=== PATIENT | male | born 1940 | race Caucasian/White ===

== ENCOUNTER → 2016-04-16 | Outpatient (CLI) | payer OTHER ==
[~2016-04-16] MED LIST: ACT/15 PO; AMLO-110 PO; ATOR-22 PO; CHOL100010 PO; CHOL1CAP PO; CYCL10TA6 PO; FURO40TA3 PO; LEVO50TA6 PO; LOSA50TA54 PO; METO1TAB69 PO; METO25TA3 PO; METO50TA7 PO; OMEP40CA PO; PLN/10 PO; RANI300T PO; SIMV20TA2 PO; TEST1INJ2 INJ
[2016-04-16 09:40] LABS: HEMATOCRIT 42.4 % (42-52); MEAN CELL VOLUME 90.8 fL (80-100); MEAN CORPUSCULAR HEMOGLOBIN 31.3 pg (25-34); MEAN CORPUSCULAR HGB CONC 34.4 g/dl (32-36); MEAN PLATELET VOLUME 9.8 fL (7.4-10.4); PLATELET COUNT 247 K/uL (130-400); RED BLOOD COUNT 4.67 M/uL (4.7-6.1); WHITE BLOOD COUNT 8.92 K/uL (4.8-10.8)
[2016-04-16 09:53] LABS: BLOOD UREA NITROGEN 38 mg/dl (7-18); GLUCOSE 159 mg/dl (70-99)
[2016-04-16 09:54] LABS: BUN/CREATININE RATIO 13.9 (10-20); CALCIUM 9.5 mg/dl (8.5-10.1); CARBON DIOXIDE 30 mmol/L (21-32); CHLORIDE 103 mmol/L (98-107); PHOSPHORUS 2.7 mg/dl (2.5-4.9); POTASSIUM 3.7 mmol/L (3.5-5.1); SODIUM 142 mmol/L (136-145)
[2016-04-16 10:04] LABS: URINE APPEARANCE CLEAR (CLEAR); URINE BILIRUBIN NEG (NEG); URINE COLOR YELLOW; URINE EPITHELIAL CELL AUTO 0-5 /lpf (0-5); URINE NITRITE NEG (NEG); URINE SPECIFIC GRAVITY 1.009 (1.000-1.030); UROBILINOGEN NEG (NEG)
[2016-04-16 10:05] LABS: MANUAL MICROSCOPIC REQUIRED? NO; REVIEW REQ? NO
[2016-04-16 10:38] LABS: URINE PROTIEN/CREAT RATIO 2.9 (0-0.2); URINE TOTAL PROTEIN 181.4 mg/dl (0-11.9)
== END | disposition home or self-care (01) ==
LOC: C.LAB 07:37
PROVIDERS: ATTEND Internal Medicine Nephrology
DX: I12.9 Hypertensive chronic kidney disease with stage 1 through stage 4 chronic kidney disease, or unspecified chronic kidney disease (principal); R80.9 Proteinuria, unspecified; N25.81 Secondary hyperparathyroidism of renal origin; E55.9 Vitamin D deficiency, unspecified; N18.4 Chronic kidney disease, stage 4 (severe)

== ENCOUNTER 2016-04-25 09:34 | Emergency (ER) | payer OTHER ==
[~2016-04-25] VITALS: Ht 170.2 cm; Wt 95.0 kg
[~2016-04-25 09:34] MED LIST changes: -AMLO-110 PO; -ATOR-22 PO; -LEVO50TA6 PO; -LOSA50TA54 PO; -METO50TA7 PO
[2016-04-25 09:40] VITALS: TEMP 37; Ht 170.2 cm; Wt 95.0 kg
--- NOTE | 2016-04-25 09:55 | EMERGENCY ROOM VISIT NOTE ---
History Report prepared by Tom: Sherita Sullivan Under the Supervision of: Dr. Catracho Rader M.D. First contact with patient: 09:41 Chief Complaint: HYPERTENSION Stated Complaint: HIGH BP History of Present Illness The patient is a 75 year old male who presents to the Emergency Room with complaints of persistent hypertension that began one week ago. The patient states that this morning when he woke up his blood pressure was over 200 systolically. He additionally associates a headache and ear ringing with his symptoms today, which he states is typical when his pressure is elevated. The patient rates his headache as a 2/10 in severity. He states that he takes metoprolol at night for his hypertension and amlodipine in the morning. The patient states that he took all his morning medications today. The patient notes a history of diabetes and hypertension. Source of History: patient Onset: one week ago Position: other (global) Symptom Intensity: 200 systolically Quality: other (hypertension) Timing: other (persistent) Associated Symptoms: + headache Note: Associated Symptoms: ringing in ears Review of Systems All systems have been listed, reviewed, and are negative other than those previously mentioned. Please see Additional Medical History Sheet. Past Medical & Surgical Medical Problems: (1) Diabetes (2) Hyperlipidemia (3) Hypertension (4) Kidney disease Family History Cancer Diabetes mellitus FH: heart disease Social History Smoking Status: Former Smoker Marital Status: Occupation Status: retired Current/Historical Medications Scheduled Amlodipine (Norvasc), 5 MG PO QAM Atorvastatin (Lipitor), 20 MG PO HS Choline Fenofibrate (Fenofibric Acid Dr), 45 MG PO DAILY Furosemide (Lasix), 40 MG PO QPM Levothyroxine Sodium (Levothyroxine Sodium), 50 MCG PO DAILY Losartan Potassium (Cozaar), 50 MG PO QAM Metoprolol Succ (Toprol Xl) (Toprol-Xl), 150 MG PO QPM Pioglitazone Hcl (Actos), 15 MG PO QPM Ranitidine Hcl (Zantac), 300 MG PO BID Testosterone Cypionate (Testosterone Cypionate), 0.5 ML INJ Q15D Allergies Coded Allergies: Penicillins (Unverified Allergy, Severe, HIVES, 06/29/15) Cimetidine (Verified Allergy, Unknown, ., 06/29/15) Physical Exam Vital Signs Date Time Temp Pulse Resp B/P Pulse Ox O2 Delivery O2 Flow Rate FiO2 04/25/16 12:00 55 18 169/83 95 04/25/16 11:00 56 142/87 04/25/16 10:37 151/81 04/25/16 10:01 64 158/88 04/25/16 09:58 64 165/85 04/25/16 09:54 62 18 172/89 97 04/25/16 09:50 67 04/25/16 09:40 37.0 70 18 208/98 96 Room Air Physical Exam GENERAL: Patient awake, alert, oriented x 3. Patient follows commands. Patient does not appear toxic. Patient is adequately hydrated and well- nourished. SKIN: No erythema, pallor, cyanosis or rash HEENT: Normal head, pupils equal, reactive to light and accommodation. Oral cavity and posterior pharynx appear normal, dentures upper and lower. Neck: Without adenopathy, no neck vein distention. LUNGS: Clear to auscultation. No wheezes, no rales, no rhonchi. HEART: No murmurs. No gallops. No rubs ABDOMEN: Soft nontender. EXTREMITIES: No significant edema. NEUROLOGIC: Cranial nerves II-XII within normal limits. No gross motor sensory function deficits. Medical Decision & Procedures Laboratory Results 04/25/16 10:00 Red Blood Count 4.57, Mean Corpuscular Volume 92.6, Mean Corpuscular Hemoglobin 32.2, Mean Corpuscular Hemoglobin Concent 34.8, Mean Platelet Volume 9.3, Neutrophils (%) (Auto) 61.7, Lymphocytes (%) (Auto) 23.2, Monocytes (%) (Auto) 11.2, Eosinophils (%) (Auto) 2.5, Basophils (%) (Auto) 0.4, Neutrophils # (Auto ) 4.12, Lymphocytes # (Auto) 1.55, Monocytes # (Auto) 0.75, Eosinophils # (Auto ) 0.17, Basophils # (Auto) 0.03 04/25/16 10:00 Test 04/25/16 10:00 White Blood Count 6.69 K/uL (4.8-10.8) Red Blood Count 4.57 M/uL (4.7-6.1) Hemoglobin 14.7 g/dL (14.0-18.0) Hematocrit 42.3 % (42-52) Mean Corpuscular Volume 92.6 fL (80-100) Mean Corpuscular Hemoglobin 32.2 pg (25-34) Mean Corpuscular Hemoglobin Concent 34.8 g/dl (32-36) Platelet Count 231 K/uL (130-400) Mean Platelet Volume 9.3 fL (7.4-10.4) Neutrophils (%) (Auto) 61.7 % Lymphocytes (%) (Auto) 23.2 % Monocytes (%) (Auto) 11.2 % Eosinophils (%) (Auto) 2.5 % Basophils (%) (Auto) 0.4 % Neutrophils # (Auto) 4.12 K/uL (1.4-6.5) Lymphocytes # (Auto) 1.55 K/uL (1.2-3.4) Monocytes # (Auto) 0.75 K/uL (0.11-0.59) Eosinophils # (Auto) 0.17 K/uL (0-0.5) Basophils # (Auto) 0.03 K/uL (0-0.2) RDW Standard Deviation 50.5 fL (36.4-46.3) RDW Coefficient of Variation 15.0 % (11.5-14.5) Immature Granulocyte % (Auto) 1.0 % Immature Granulocyte # (Auto) 0.07 K/uL (0.00-0.02) Anion Gap 10.0 mmol/L (3-11) Est Creatinine Clear Calc Drug Dose 28.5 ml/min Estimated GFR () 28.3 Estimated GFR (Non- 24.4 BUN/Creatinine Ratio 14.5 (10-20) Calcium Level 8.8 mg/dl (8.5-10.1) Troponin I < 0.015 ng/ml (0-0.045) Laboratory results as stated above per my review. ECG Indication: other (hypertension) Rate (beats per minute): 62 Rhythm: normal sinus Findings: no acute ischemic change, no ectopy ED Course 0942: Past medical records reviewed. The patient was evaluated in room A2. A complete history and physical examination was performed. 1051: Per the charge nurse, the patient's potassium hemolyzed. On 04/16/16 the patient had a potassium of 3.7, the lab will not be redrawn. 1118: I reevaluated the patient and he is resting comfortably. His blood pressure came down without medication and the ringing in his ear has subsided. I discussed the exam findings with him and I discussed the treatment plan. He verbalized complete understanding and agreement. He is ready to go home. Medical Decision Nurses notes reviewed. Medical history sheet reviewed. Differential diagnosis includes but is not limited to: hypertension, medication compliance, metabolic disorder, renal impairment. The patient is here with elevated blood pressure and ringing in his ears. I had ordered medication for him to receive but his blood pressure began coming down without that. Multiple blood pressure recordings were obtained. The patient felt better and did not have to receive any further antihypertensives. I reassured the patient. Multiple labs were evaluated. Please see above. I feel the patient is safe to return home and will continue taking his current medications as prescribed. He is to follow-up with his family physician and crtts. Impression Primary Impression: Hypertension Scribe Attestation The scribe's documentation has been prepared under my direction and personally reviewed by me in its entirety. I confirm that the note above accurately reflects all work, treatment, procedures, and medical decision making performed by me. Departure Information Dispostion Home / Self-Care Referrals Amilcar Rivas Jr,D.O. (PCP) Forms HOME CARE DOCUMENTATION FORM, IMPORTANT VISIT INFORMATION, WORK / SCHOOL INSTRUCTIONS Patient Instructions My [facility] Additional Instructions Continue taking all of your current medications as prescribed. Follow-up with your family physician and crtts. Problem Qualifiers Primary Impression: Hypertension Hypertension type: renovascular hypertension Qualified Codes: I15.0 - Renovascular hypertension
[2016-04-25] MEDS ORDERED: AMLODIPINE BESYLATE 5 MG TAB PO ONE (10:00)
[2016-04-25 10:07] LABS: BASO % 0.4 %; BASO ABS # 0.03 K/uL (0-0.2); COMPLETE YES; EOS % 2.5 %; HEMATOCRIT 42.3 % (42-52); LYMPH % 23.2 %; LYMPH ABS # 1.55 K/uL (1.2-3.4); MEAN CELL VOLUME 92.6 fL (80-100); MEAN CORPUSCULAR HEMOGLOBIN 32.2 pg (25-34); MEAN CORPUSCULAR HGB CONC 34.8 g/dl (32-36); MEAN PLATELET VOLUME 9.3 fL (7.4-10.4); MONO % 11.2 %; NEUT % 61.7 %; PLATELET COUNT 231 K/uL (130-400); RED BLOOD COUNT 4.57 M/uL (4.7-6.1); WHITE BLOOD COUNT 6.69 K/uL (4.8-10.8)
[2016-04-25] MEDS ORDERED: ATOR-22 PO (10:07)
[2016-04-25] MEDS ORDERED: LOSA50TA54 PO (10:07)
[2016-04-25] MEDS ORDERED: LEVO50TA6 PO (10:07)
[2016-04-25] MEDS ORDERED: METO50TA7 PO (10:07)
[2016-04-25] MEDS ORDERED: AMLO-110 PO (10:07)
[2016-04-25 10:38] LABS: BLOOD UREA NITROGEN 36 mg/dl (7-18); BUN/CREATININE RATIO 14.5 (10-20); CALCIUM 8.8 mg/dl (8.5-10.1); CARBON DIOXIDE 26 mmol/L (21-32); CHLORIDE 104 mmol/L (98-107); GLUCOSE 202 mg/dl (70-99); SODIUM 140 mmol/L (136-145)
[2016-04-25 12:00] VITALS: BP 169/83; PULSE 55; O2SAT 95
== END 2016-04-25 12:30 | disposition home or self-care (01) ==
LOC: C.EDB 09:37 → C.EDA 12:30
DX: I15.0 Renovascular hypertension (principal); E11.9 Type 2 diabetes mellitus without complications; E78.5 Hyperlipidemia, unspecified; N28.9 Disorder of kidney and ureter, unspecified; Z80.9 Family history of malignant neoplasm, unspecified; Z83.3 Family history of diabetes mellitus; Z82.49 Family history of ischemic heart disease and other diseases of the circulatory system; Z87.891 Personal history of nicotine dependence; Z79.899 Other long term (current) drug therapy

== ENCOUNTER → 2016-05-08 | Outpatient (CLI) | payer OTHER ==
[~2016-05-08] MED LIST changes: +AMLO-110 PO; +ATOR-22 PO; -CHOL100010 PO; -CYCL10TA6 PO; +LEVO50TA6 PO; +LOSA50TA54 PO; -METO1TAB69 PO; -METO25TA3 PO; +METO50TA7 PO; -OMEP40CA PO; -PLN/10 PO; -SIMV20TA2 PO
[2016-05-08 09:55] LABS: BLOOD UREA NITROGEN 45 mg/dl (7-18); CALCIUM 9.1 mg/dl (8.5-10.1); CARBON DIOXIDE 31 mmol/L (21-32); CHLORIDE 101 mmol/L (98-107); GLUCOSE 265 mg/dl (70-99); POTASSIUM 3.9 mmol/L (3.5-5.1); SODIUM 139 mmol/L (136-145)
[2016-05-08 09:56] LABS: PHOSPHORUS 3.1 mg/dl (2.5-4.9)
== END | disposition home or self-care (01) ==
LOC: C.LAB 07:39
PROVIDERS: ATTEND Internal Medicine Nephrology
DX: I10 Essential (primary) hypertension (principal); N28.1 Cyst of kidney, acquired; R80.9 Proteinuria, unspecified; N25.81 Secondary hyperparathyroidism of renal origin; E55.9 Vitamin D deficiency, unspecified; N18.4 Chronic kidney disease, stage 4 (severe)

== ENCOUNTER → 2016-08-25 | Outpatient (CLI) | payer OTHER ==
[2016-08-25 10:48] LABS: HEMATOCRIT 37.1 % (42-52); MEAN CELL VOLUME 91.8 fL (80-100); MEAN CORPUSCULAR HEMOGLOBIN 31.2 pg (25-34); MEAN PLATELET VOLUME 8.7 fL (7.4-10.4); PLATELET COUNT 242 K/uL (130-400); RED BLOOD COUNT 4.04 M/uL (4.7-6.1); WHITE BLOOD COUNT 6.81 K/uL (4.8-10.8)
[2016-08-25 11:19] LABS: BLOOD UREA NITROGEN 44 mg/dl (7-18); BUN/CREATININE RATIO 11.9 (10-20); CALCIUM 9.2 mg/dl (8.5-10.1); CARBON DIOXIDE 28 mmol/L (21-32); CHLORIDE 104 mmol/L (98-107); GLUCOSE 192 mg/dl (70-99); PHOSPHORUS 3.6 mg/dl (2.5-4.9); POTASSIUM 4.3 mmol/L (3.5-5.1); SODIUM 140 mmol/L (136-145)
[2016-08-25 12:10] LABS: MANUAL MICROSCOPIC REQUIRED? NO; REVIEW REQ? NO; URINE APPEARANCE CLEAR (CLEAR); URINE BILIRUBIN NEG (NEG); URINE COLOR YELLOW; URINE EPITHELIAL CELL AUTO 0-5 /lpf (0-5); URINE NITRITE NEG (NEG); URINE SPECIFIC GRAVITY 1.014 (1.000-1.030); UROBILINOGEN NEG (NEG)
[2016-08-25 12:14] LABS: URINE PROTIEN/CREAT RATIO 0.9 (0-0.2); URINE TOTAL PROTEIN 98.9 mg/dl (0-11.9)
== END | disposition home or self-care (01) ==
LOC: C.LAB 10:15
PROVIDERS: ATTEND Internal Medicine Nephrology
DX: I12.9 Hypertensive chronic kidney disease with stage 1 through stage 4 chronic kidney disease, or unspecified chronic kidney disease (principal); R80.9 Proteinuria, unspecified; N25.81 Secondary hyperparathyroidism of renal origin; E55.9 Vitamin D deficiency, unspecified; N18.4 Chronic kidney disease, stage 4 (severe)

== ENCOUNTER → 2016-09-05 | Outpatient (CLI) | payer OTHER ==
--- NOTE | 2016-09-05 12:11 | DIAGNOSTIC IMAGING REPORT ---
(RENAL)RETROPERITON COMP HISTORY: 76 years-old Male I10 [id number] [id number] Secondary hyperparathyro COMPARISON: Renal ultrasound 04/11/2014 and 06/07/2012, 05/24/2007 TECHNIQUE: Multiple real-time sonographic images of the kidneys and urinary bladder were obtained assessing grayscale appearance and color flow. FINDINGS: The right kidney measures 10.4 cm in length. Diffuse cortical thinning is again seen with increased echogenicity of the renal parenchyma. No hydronephrosis. Mildly echogenic lesion within the inferior pole left kidney with increased through transmission is again seen, 2.2 x 2.1 x 2.2 cm, previously 2.8 x 2.3 x 2.2 cm. A simple appearing cyst was seen within this distribution on study dated 05/24/2007 suggesting hemorrhagic cyst. Cyst of the midpole right kidney is seen measuring up to 1.9 cm without internal flow or suspicious features. Left kidney measures 11.7 cm in length. Exophytic cyst of the inferior pole left kidney is noted measuring up to 4.3 x 4.6 x 4.0 cm, the measured at 3.2 cm. No suspicious features or internal vascularity. Superior pole left kidney cyst measures 2.9 x 2.7 x 2.2 cm and appears simple. Diffuse renal cortical thinning with increased echogenicity of the renal parenchyma noted. Collapsed urinary bladder is unremarkable. IMPRESSION: 1. Evidence of chronic medical renal disease without hydronephrosis. 2. Demonstration of multiple bilateral renal cysts without significant change from comparison exam. 3. Complex lesion of the lower pole right kidney measuring up to 2.2 cm appears unchanged to slightly smaller from 04/11/2014 suggesting complex cyst. A simple cyst was noted within this distribution on study dated 05/24/2007. The above report was generated using voice recognition software. It may contain grammatical, syntax or spelling errors. Electronically signed by: Joaquin Blum M.D. 09/05/2016 12:09 PM Dictated Date/Time: 09/05/2016 12:02 PM
== END | disposition home or self-care (01) ==
LOC: C.ULTR 11:19
PROVIDERS: ATTEND Internal Medicine Nephrology
DX: E55.9 Vitamin D deficiency, unspecified (principal); I10 Essential (primary) hypertension; N18.4 Chronic kidney disease, stage 4 (severe); N25.81 Secondary hyperparathyroidism of renal origin; R80.9 Proteinuria, unspecified; N28.1 Cyst of kidney, acquired

== ENCOUNTER → 2016-09-11 | Outpatient (CLI) | payer OTHER ==
[2016-09-11 10:01] LABS: ESTIMATED AVERAGE GLUCOSE 163 mg/dl; HA1C FLAG Normal (Normal)
[2016-09-11 10:47] LABS: BLOOD UREA NITROGEN 39 mg/dl (7-18); BUN/CREATININE RATIO 13.6 (10-20); CALCIUM 9.1 mg/dl (8.5-10.1); CARBON DIOXIDE 32 mmol/L (21-32); CHLORIDE 107 mmol/L (98-107); GLUCOSE 143 mg/dl (70-99); SODIUM 142 mmol/L (136-145)
== END | disposition home or self-care (01) ==
LOC: C.LAB 06:51
DX: E11.9 Type 2 diabetes mellitus without complications (principal)

== ENCOUNTER → 2016-10-03 | Outpatient (CLI) | payer OTHER ==
[2016-10-03 15:22] LABS: HEMATOCRIT 37.8 % (42-52); MEAN CELL VOLUME 92.2 fL (80-100); MEAN CORPUSCULAR HEMOGLOBIN 32.4 pg (25-34); MEAN CORPUSCULAR HGB CONC 35.2 g/dl (32-36); MEAN PLATELET VOLUME 9.2 fL (7.4-10.4); PLATELET COUNT 234 K/uL (130-400)
[2016-10-03 15:45] LABS: URINE PROTIEN/CREAT RATIO 1.4 (0-0.2); URINE TOTAL PROTEIN 285.9 mg/dl (0-11.9)
[2016-10-03 15:54] LABS: BLOOD UREA NITROGEN 35 mg/dl (7-18); BUN/CREATININE RATIO 10.9 (10-20); CALCIUM 8.7 mg/dl (8.5-10.1); CARBON DIOXIDE 29 mmol/L (21-32); CHLORIDE 105 mmol/L (98-107); PHOSPHORUS 2.9 mg/dl (2.5-4.9); SODIUM 140 mmol/L (136-145)
[2016-10-03 16:25] LABS: GLUCOSE 171 mg/dl (70-99)
== END | disposition home or self-care (01) ==
LOC: C.LAB 14:24
PROVIDERS: ATTEND Internal Medicine Nephrology
DX: I10 Essential (primary) hypertension (principal); R80.9 Proteinuria, unspecified; N25.81 Secondary hyperparathyroidism of renal origin; E55.9 Vitamin D deficiency, unspecified; N18.4 Chronic kidney disease, stage 4 (severe)

== ENCOUNTER → 2017-04-02 | Outpatient (CLI) | payer OTHER ==
[~2017-04-02] MED LIST changes: -METO50TA7 PO; +METO50TA8 PO
[2017-04-02 15:01] LABS: HEMATOCRIT 40.2 % (42-52); HEMOGLOBIN 13.7 g/dL (14.0-18.0); MEAN CORPUSCULAR HGB CONC 34.1 g/dl (32-36); MEAN PLATELET VOLUME 9.7 fL (7.4-10.4); PLATELET COUNT 271 K/uL (130-400); RED CELL DISTRIBUTION WIDTH CV 15.1 % (11.5-14.5); RED CELL DISTRIBUTION WIDTH SD 50.7 fL (36.4-46.3); WHITE BLOOD COUNT 7.98 K/uL (4.8-10.8)
[2017-04-02 15:16] LABS: ALBUMIN 3.5 gm/dl (3.4-5.0); BLOOD UREA NITROGEN 49 mg/dl (7-18); CALCIUM 9.1 mg/dl (8.5-10.1); CARBON DIOXIDE 30 mmol/L (21-32); CREATININE 2.91 mg/dl (0.60-1.40); GLUCOSE 66 mg/dl (70-99); POTASSIUM 3.6 mmol/L (3.5-5.1); SODIUM 141 mmol/L (136-145)
[2017-04-02 15:17] LABS: PHOSPHORUS 3.3 mg/dl (2.5-4.9)
[2017-04-02 15:20] LABS: ALT/SGPT 17 U/L (12-78); AST/SGOT 15 U/L (15-37)
[2017-04-02 15:58] LABS: HEMOGLOBIN A1C 6.6 % (4.5-5.6)
== END | disposition home or self-care (01) ==
LOC: C.LAB 12:14
DX: I10 Essential (primary) hypertension (principal); R80.9 Proteinuria, unspecified; N25.81 Secondary hyperparathyroidism of renal origin; N18.4 Chronic kidney disease, stage 4 (severe); E55.9 Vitamin D deficiency, unspecified

== ENCOUNTER 2017-04-20 04:49 | Inpatient (IN) | payer OTHER ==
[2017-04-15 08:29] VITALS: BMI 31.0
--- NOTE | 2017-04-15 09:13 | PAT Medication Instructions ---
Service Date Apr 15, 2017. Current Home Medication List Ascorbic Acid (Vitamin C), 500 MG PO QAM Atorvastatin (Lipitor), 20 MG PO HS Cholecalciferol (Vitamin D3), 1 TAB PO QAM Choline Fenofibrate (Fenofibric Acid Dr), 45 MG PO QPM Furosemide (Lasix), 40 MG PO QPM Levothyroxine Sodium (Levothyroxine Sodium), 1 TAB PO QAM Losartan Potassium (Cozaar), 100 MG PO QAM Metoprolol Succ (Toprol Xl) (Toprol-Xl), 150 MG PO QPM Pioglitazone Hcl (Actos), 15 MG PO QPM Ranitidine Hcl (Zantac), 300 MG PO BID Testosterone Cypionate (Testosterone Cypionate), 0.5 ML INJ Q15D Vitamin E (Rvux-T-Sjusb 1000), 1,000 UNITS PO QAM [Insulin], 15 UNITS SC QAM Medication Instructions For Your Scheduled Surgery -Continue as directed: Testosterone Cypionate (Testosterone Cypionate), 0.5 ML INJ Q15D - WE WILL CALL YOU WITH INSTRUCTIONS FOR: [Insulin], 15 UNITS SC QAM - Hold the following medications starting tomorrow: Vitamin E (Lmft-J-Ylnwi 1000), 1,000 UNITS PO QAM - Hold the following medications the night before surgery: Choline Fenofibrate (Fenofibric Acid Dr), 45 MG PO QPM - Hold the following medications the morning of surgery: Ascorbic Acid (Vitamin C), 500 MG PO QAM Cholecalciferol (Vitamin D3), 1 TAB PO QAM Losartan Potassium (Cozaar), 100 MG PO QAM - Take the following medications the morning of surgery with a sip of water: Levothyroxine Sodium (Levothyroxine Sodium), 1 TAB PO QAM Ranitidine Hcl (Zantac), 300 MG PO BID - Take the following medications as scheduled the night before surgery: Atorvastatin (Lipitor), 20 MG PO HS Metoprolol Succ (Toprol Xl) (Toprol-Xl), 150 MG PO QPM Pioglitazone Hcl (Actos), 15 MG PO QPM Ranitidine Hcl (Zantac), 300 MG PO BID Furosemide (Lasix), 40 MG PO QPM If you have any questions please call us at [phone] or [phone] or [phone]
[2017-04-15 10:03] LABS: BASO % 0.4 %; BASO ABS # 0.03 K/uL (0-0.2); EOS % 2.2 %; EOS ABS # 0.17 K/uL (0-0.5); HEMOGLOBIN 14.2 g/dL (14.0-18.0); IG# 0.05 K/uL (0.00-0.02); LYMPH % 25.8 %; LYMPH ABS # 2.01 K/uL (1.2-3.4); MEAN CELL VOLUME 91.9 fL (80-100); MEAN CORPUSCULAR HEMOGLOBIN 31.1 pg (25-34); MEAN CORPUSCULAR HGB CONC 33.8 g/dl (32-36); MEAN PLATELET VOLUME 9.4 fL (7.4-10.4); MONO % 10.2 %; MONO ABS # 0.79 K/uL (0.11-0.59); NEUT % 60.8 %; NEUT ABS # 4.73 K/uL (1.4-6.5); PLATELET COUNT 226 K/uL (130-400); RED CELL DISTRIBUTION WIDTH CV 15.1 % (11.5-14.5); RED CELL DISTRIBUTION WIDTH SD 50.8 fL (36.4-46.3); WHITE BLOOD COUNT 7.78 K/uL (4.8-10.8)
[2017-04-15 10:14] LABS: ALBUMIN 3.6 gm/dl (3.4-5.0); CALCIUM 9.4 mg/dl (8.5-10.1); CREATININE 3.08 mg/dl (0.60-1.40); POTASSIUM 3.9 mmol/L (3.5-5.1)
[~2017-04-20] VITALS: Ht 170.2 cm; Wt 89.6 kg
[2017-04-20] VITALS (14 sets, daily range): BP systolic 129–172; BP diastolic 69–88; PULSE 53–88; TEMP 36.3–36.6; O2SAT 93–97; Ht 170.2 cm; Wt 89.6 kg
[~2017-04-20 04:49] MED LIST changes: -AMLO-110 PO; +ASCO1CAP3 PO; +CHOL1000 PO; +INSULIN GLARGINE INJ; -LEVO50TA6 PO; +LEVO75TA5 PO; +LIXISENATIDE INJ; +[UNRECOGNIZED DRUG - CODE] PO
[2017-04-20] MEDS ORDERED: CLINDAMYCIN IV 900 MG in DEXTROSE 5% 50ML 44 ML IV STA (06:05)
[2017-04-20] MEDS ORDERED: SODIUM CHLORIDE 0.9% 1000ML 1,000 ML IV SCH ×2 (06:15→10:45)
--- NOTE | 2017-04-20 06:46 | History & Physical Bridge Note ---
H&P Re-Evaluation Bridge Note: I have examined the patient, reviewed the History & Physical and in the interval since the performance of the History & Physical I have noted the following changes of clinical significance: No changes noted
[2017-04-20] MEDS ORDERED: CONRAY 60% 50 ML VIAL ONE (06:51)
[2017-04-20] MEDS ORDERED: BUPIVACAINE 0.5 % 5 MG/1 ML MPF 30ML VIAL ONE (06:51)
[2017-04-20] MEDS ORDERED: PROPOFOL IV EMULSION 10 MG/ML 20 ML VIAL IV ONE (06:54)
[2017-04-20] MEDS ORDERED: LIDOCAINE HCL 2% 2 ML VIAL (20MG/ML) ONE (06:54)
[2017-04-20] MEDS ORDERED: FENTANYL CITRATE INJ 50 MCG/1 ML 2 ML VIAL ONE (06:54)
[2017-04-20] MEDS ORDERED: ROCURONIUM BROMIDE 10 MG/ML 5 ML VIAL IV ONE (07:35)
[2017-04-20] MEDS ORDERED: EpHEDrine SULFATE 50MG/5ML SYR ONE (07:35)
[2017-04-20] MEDS ORDERED: NEOSTIGMINE METHYLSULFATE 5 MG/5 ML SYR ONE (07:37)
[2017-04-20] MEDS ORDERED: GLYCOPYRROLATE INJ 0.2 MG/ML VIAL ONE (07:37)
--- NOTE | 2017-04-20 07:50 | [facility] Operative Report ---
Operative Report Operative Date Apr 20, 2017. Pre-Operative Diagnosis Chronic Cholecystitis Post-Operative Diagnosis Chronic Cholecystitis Procedure(s) Performed Laparoscopic Cholecystectomy Surgeon Dr. Amilcar Schwab [employer] Supervisor Surgeon(s) Dmitri Portillo PA-C Estimated Blood Loss 10cc Findings partially intrahepatic gb- mild chronic disease Specimens Permanent Solution: A.) Gallbladder and Contents Drains #15 Rd MAGDA to subhepatic space Anesthesia Type General Complication(s) none Disposition Recovery Room / PACU I attest to the content of the Intraoperative Record and any orders documented therein. Any exceptions are noted below.
[2017-04-20] MEDS ORDERED: ONDANSETRON INJ 2 MG/ML 2 ML VIAL IV PRN ×2 (08:00→08:15)
[2017-04-20] MEDS ORDERED: MoRPHine SULFATE 2 MG/ML CARP IV PRN (08:00)
[2017-04-20] MEDS ORDERED: MoRPHine SULFATE 4 MG/ML 1 ML CARP\\VIAL IV PRN (08:00)
[2017-04-20] MEDS ORDERED: HYDROCODONE/ACETAMIN 5/325MG TAB PO PRN (08:00)
[2017-04-20] MEDS ORDERED: PROMETHAZINE HCL INJ 25 MG in SODIUM CHLORIDE 0.9% 50ML 50 ML IV PRN (08:00)
[2017-04-20] MEDS ORDERED: NEOSTIGMINE METHYLSULFATE 1 MG/ML 10ML VIAL ONE (08:03)
--- NOTE | 2017-04-20 08:10 | OPERATIVE REPORT ---
DATE OF OPERATION: 04/20/2017 NAME OF OPERATION: Laparoscopic cholecystectomy. PREOPERATIVE DIAGNOSIS: Biliary colic. POSTOPERATIVE DIAGNOSIS: Same with chronic cholecystitis. STAFF SURGEON: Amilcar Schwab MD. PROSPECTING OBSERVER: Dmitri Portillo PA-C. ANESTHESIA: General. DESCRIPTION OF THE PROCEDURE: The patient was brought in the operating room and placed on the operating table in supine position. His abdomen was prepped and draped in usual fashion. Pneumatic stockings and orogastric tube were placed. 0.5% plain Marcaine was used to anesthetize all incisions. Incision was made above the umbilicus, carrying dissection down to the fascia, placing a Veress needle producing pneumoperitoneum. An 11 mm port was placed at this level and then under visualization, three 5 mm ports placed, 1 cephalad and 2 laterally. Gallbladder was grasped and retracted. It was somewhat small and partially intrahepatic. Dissection was carried out to pepe hepatis, identifying the cystic duct and cystic artery. These were clipped and transected. The gallbladder was then dissected away from the liver bed in the usual fashion. Because of the intrahepatic nature, there was some mild oozing. However, we only lost approximately 10 mL of blood. Because of the patient's renal failure and findings, I felt that a 15 round Jarrett-Montes drain will be placed. This was placed through the lateral 5 mm port site into the subhepatic space, secured to the skin using 3-0 nylon suture. The gallbladder was placed in an Endobag and removed through the umbilical site. All ports were then removed. The fascia at the umbilicus closed using 0 Vicryl suture and then the skin at all sites closed using 4-0 nylon suture. Dressings were applied. The patient transferred to recovery room in stable condition. As a note my review assistant Dmitri Portillo helped with prepping, draping, entering the abdominal cavity, exposing the gallbladder, removal of the gallbladder and closure of the wounds. I attest to the content of the Intraoperative Record and any orders documented therein. Any exception s are noted below.
[2017-04-20] MEDS ORDERED: PROMETHAZINE HCL INJ 6.25 MG in SODIUM CHLORIDE 0.9% 50ML 50 ML IV PRN (08:15)
[2017-04-20] MEDS ORDERED: ATROPINE SULFATE 0.1 MG/ML 5ML SYR IV PRN (08:15)
[2017-04-20] MEDS ORDERED: EpHEDrine SULFATE INJ 50 MG/ML AMP IV PRN (08:15)
[2017-04-20] MEDS ORDERED: PROMETHAZINE HCL INJ 12.5 MG in SODIUM CHLORIDE 0.9% 50ML 50 ML IV PRN (08:15)
[2017-04-20] MEDS ORDERED: FENTANYL CITRATE INJ 50 MCG/1 ML 2 ML VIAL IV PRN (08:15)
[2017-04-20] MEDS ORDERED: NURSING VERBAL MED ORDER ONE (08:35)
[2017-04-20] MEDS ORDERED: IV FLUIDS COMPLETED PRN (09:00)
[2017-04-20] MEDS ORDERED: LOSARTAN POTASSIUM 50 MG TAB PO SCH (09:00)
[2017-04-20] MEDS ORDERED: ALBUT/IPRATROP 3MG/0.5MG NEB 3 ML VIAL INH ONE (09:45)
[2017-04-20 09:53] LABS: CALCIUM 8.1 mg/dl (8.5-10.1); CREATININE 2.66 mg/dl (0.60-1.40); POTASSIUM 3.5 mmol/L (3.5-5.1)
--- NOTE | 2017-04-20 10:18 | Progress Note ---
Progress Note Date of Service Apr 20, 2017. Progress Note Patient's neuromuscular matias was reversed and he was weaned from ventilator in OR after lifting arms above chest for several seconds on command. However, in recovery, he showed some signs of residual neuromuscular blockade and SpO2 in the high 70s. His spontaneous breathing was supported by bag mask ventilation until BiPAP therapy could arrive and an additional dose of neostigmine was given to reverse NMB. The patient tolerated BiPAP well and continued to improve in strength and cough. This was weaned to 3L nasal cannula and the patient was awake, strong, and met PACU discharge criteria. He will be discharged to the floor with continuous pulse oxymetry.
[2017-04-20] MEDS: HYDROCODONE/ACETAMIN 5/325MG TAB PO PRN ×2 (12:46→20:57)
[2017-04-20] MEDS ORDERED: HydrALAZINE HCL 20 MG/ML VIAL IV. PRN (13:30)
--- NOTE | 2017-04-20 13:39 | Medical Consult ---
Consultation Date of Consultation: Apr 20, 2017. Attending Physician: Amilcar Schwab M.D. Reason for Consultation: Medical management History of Present Illness Patient is a 76 y/o male, with PMHx of HTN, HLD, hypothyroidism, T2DM, CKD stage IV, BPH, and GERD s/p lap elsa by Dr. Schwab on 04/20. Patient resting in bed. Feeling well. Complains of mild abdominal discomfort. Tried to eat postop but started to become nauseous and vomited x1. Feeling better now. No flatus/BM postop. Patient denies any cardiac history. Patient denies any fever, chills, sweats, lightheadedness, dizziness, vision changes, CP, palpitations, edema, SOB , wheezing, cough, diarrhea, urinary symptoms, melena, numbness/tingling, weakness, muscle/joint pain, anxiety/depression, active bleeding, or new skin discoloration/changes. Past Medical/Surgical History Medical Problems: HTN HLD hypothyroidism T2DM CKD stage IV BPH GERD Family History Cancer Diabetes mellitus FH: heart disease Social History Smoking Status: Former Smoker Marital Status: Occupation Status: retired Allergies Coded Allergies: Penicillins (Unverified Allergy, Severe, HIVES, 04/20/17) Cimetidine (Verified Allergy, Unknown, SHORTNESS OF BREATH, 04/20/17) Clarithromycin (Verified Allergy, Unknown, UNKNOWN, 04/20/17) Omeprazole (Verified Allergy, Unknown, SHORTNESS OF BREATH, 04/20/17) Home Medications Reported Home Medications Medications Dose Route/Sig Max Daily Dose Days Date Category Dose Instructions [insulin glargine/lix] 15 INJ QAM 04/15/17 Reported Soliqua-- insulin glargine/lixisenatide Gial-M-Aeadc 1000 (Vitamin E) 1,000 Unit Cap 1,000 Units PO QAM 04/15/17 Reported Vitamin D3 (Cholecalciferol) 1,000 Unit Tab 1 Tab PO QAM 90 04/15/17 Reported Vitamin C (Ascorbic Acid) 500 Mg Cap 500 Mg PO QAM 04/15/17 Reported Levothyroxine Sodium 75 Mcg Tab 1 Tab PO QAM 90 04/15/17 Reported Toprol-Xl (Metoprolol Succinate) 50 Mg Tabcr 150 Mg PO QPM 04/25/16 Reported Cozaar (Losartan Potassium) 50 Mg Tab 100 Mg PO QAM 04/25/16 Reported Lipitor (Atorvastatin Calcium) 20 Mg Tab 20 Mg PO HS 04/25/16 Reported Testosterone Cypionate 200 Mg/Ml Inj 0.5 Ml INJ Q15D 06/29/[address] (Choline Fenofibrate) 45 Mg Cap 45 Mg PO QPM 06/29/15 Reported Actos (Pioglitazone Hcl) 15 Mg Tab 15 Mg PO QPM 06/22/15 Reported Zantac (Ranitidine Hcl) 300 Mg Tab 300 Mg PO BID 09/08/13 Reported Lasix (Furosemide) 40 Mg Tab 40 Mg PO QPM 09/08/13 Reported Current Inpatient Medications Current Inpatient Medications Medications (Trade) Dose Ordered Sig/Tika Route Start Time Stop Time Status Last Admin Dose Admin Sodium Chloride 1,000 ml @ 15 mls/hr Q24H IV 04/20/17 06:15 04/20/17 18:00 04/20/17 06:06 15 MLS/HR Atorvastatin Calcium (Lipitor Tab) 20 mg HS PO 04/20/17 21:00 05/20/17 20:59 Furosemide (Lasix Tab) 40 mg QPM PO 04/20/17 21:00 05/20/17 20:59 Levothyroxine Sodium (Synthroid Tab) 75 mcg DAILYBB PO 04/21/17 06:00 05/21/17 05:59 Losartan Potassium (coZAAR TAB) 100 mg QAM PO 04/20/17 09:00 05/20/17 08:59 04/20/17 11:23 100 MG Metoprolol Succinate (Toprol Xl Tab) 150 mg QPM PO 04/20/17 21:00 05/20/17 20:59 Pioglitazone HCl (ACTos TAB) 15 mg QPM PO 04/20/17 21:00 05/20/17 20:59 Acetaminophen/ Hydrocodone Bitart (Dent 5/325 Tab) `1-2 tabs for pain 1 tab ... Q4 PRN PO 04/20/17 08:00 05/04/17 07:59 04/20/17 12:46 1 TAB Morphine Sulfate (MoRPHine SULFATE INJ) 2 mg Q4H PRN IV 04/20/17 08:00 05/04/17 07:59 Morphine Sulfate (MoRPHine SULFATE INJ) 4 mg Q4H PRN IV 04/20/17 08:00 05/04/17 07:59 Promethazine HCl 25 mg/Sodium Chloride 51 ml @ 204 mls/hr Q6H PRN IV 04/20/17 08:00 05/20/17 07:59 Ondansetron HCl (Zofran Inj) 4 mg Q6H PRN IV 04/20/17 08:00 05/20/17 07:59 Promethazine HCl 12.5 mg/Sodium Chloride 50.5 ml @ 202 mls/hr Q6H PRN IV 04/20/17 08:15 05/20/17 08:14 Miscellaneous (Iv Fluids Completed) 1 ea PRN PRN N/A 04/20/17 09:00 04/20/18 08:59 Physical Exam Date Time Temp Pulse Resp B/P (MAP) Pulse Ox O2 Delivery O2 Flow Rate FiO2 04/20/17 12:10 78 16 146/77 (100) 96 3.0 04/20/17 11:15 70 16 139/70 (93) 96 3.0 04/20/17 10:45 36.3 53 16 129/69 (89) 97 3.0 04/20/17 10:20 36.3 59 16 168/81 (110) 96 Nasal Cannula 3.0 04/20/17 10:20 96 Nasal Cannula 3.0 04/20/17 10:20 Nasal Cannula 3.0 04/20/17 10:00 60 18 145/74 96 Nasal Cannula 3 04/20/17 09:50 63 18 138/69 94 Nasal Cannula 3 04/20/17 09:40 36.0 64 14 145/72 96 Nasal Cannula 3 04/20/17 09:30 64 18 153/74 96 Oxymask 3 04/20/17 09:20 66 25 145/79 97 Oxymask 6 04/20/17 09:10 72 23 155/83 96 Oxymask 10 04/20/17 09:00 75 28 155/83 97 Oxymask 12 04/20/17 08:50 84 25 162/98 96 Oxymask 15 04/20/17 08:46 88 20 94 BiPAP/CPAP 60 04/20/17 08:40 121 25 193/118 95 BiPAP 60 04/20/17 08:30 103 22 173/108 95 BiPAP 60 04/20/17 08:20 79 16 152/81 96 BiPAP 60 04/20/17 08:18 84 95 60 04/20/17 08:10 93 28 178/93 87 Mask 15 04/20/17 08:04 36.2 76 20 203/99 89 Ambu-Bag 15 04/20/17 05:52 36.6 66 20 169/80 (109) 97 Room Air General Appearance: no apparent distress, + obese, + pertinent finding (O2 NC ) Head: normocephalic, atraumatic Eyes: normal inspection, PERRL ENT: hearing grossly normal Neck: supple Respiratory/Chest: lungs clear, no respiratory distress, no accessory muscle use Cardiovascular: regular rate, rhythm Abdomen/GI: normal bowel sounds, soft, + tenderness (around incision sites ), + pertinent finding (Wound dressings C/D/I; hemovac with serosanguinous drainage ) Back: normal inspection Extremities/Musculoskelatal: no calf tenderness, no pedal edema Neurologic/Psych: alert, normal mood/affect, oriented x 3 Skin: normal color, warm/dry, no rash Laboratory Results Last 24 Hours Test 04/20/17 05:33 04/20/17 08:16 04/20/17 09:01 04/20/17 12:07 Bedside Glucose 114 mg/dl 137 mg/dl 152 mg/dl Sodium Level 141 mmol/L Potassium Level 3.5 mmol/L Chloride Level 108 mmol/L Carbon Dioxide Level 27 mmol/L Anion Gap 7.0 mmol/L Blood Urea Nitrogen 42 mg/dl Creatinine 2.66 mg/dl Est Creatinine Clear Calc Drug Dose 25.6 ml/min Estimated GFR () 26.0 Estimated GFR (Non- 22.5 BUN/Creatinine Ratio 15.8 Random Glucose 171 mg/dl Calcium Level 8.1 mg/dl Assessment & Plan Patient is a 76 y/o male, with PMHx of HTN, HLD, hypothyroidism, T2DM, CKD stage IV, BPH, and GERD s/p lap elsa by Dr. Schwab on 04/20. s/p lap elsa by Dr. 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 Acosta: Follow PRP Hypothyroidism: Continue Synthroid GERD: Zantac 300 mg BID DVT prophylaxis: As per surgical team Dispo: As per primary team
[2017-04-20] MEDS: INSULIN ASPART 100 UNITS/ML 3 ML PEN SC SCH ×2 (17:15→20:51)
[2017-04-20] MEDS: METOPROLOL SUCC 50MG EXT REL TAB PO SCH (20:56)
[2017-04-20] MEDS: RANITIDINE HCL 150 MG TAB PO SCH (20:56)
[2017-04-20] MEDS: ATORVASTATIN 20 MG TAB PO SCH (20:56)
[2017-04-20] MEDS ORDERED: PIOGLITAZONE TAB 15 MG TAB PO SCH (21:00)
[2017-04-20] MEDS ORDERED: FUROSEMIDE 40 MG TAB PO SCH (21:00)
[2017-04-21 03:20] VITALS: BP 157/71; PULSE 61; TEMP 36.3; O2SAT 97
[2017-04-21] MEDS: HYDROCODONE/ACETAMIN 5/325MG TAB PO PRN ×3 (03:25→23:33)
[2017-04-21 05:17] LABS: HEMATOCRIT 37.3 % (42-52); HEMOGLOBIN 12.9 g/dL (14.0-18.0); MEAN CELL VOLUME 91.2 fL (80-100); MEAN CORPUSCULAR HEMOGLOBIN 31.5 pg (25-34); MEAN CORPUSCULAR HGB CONC 34.6 g/dl (32-36); PLATELET COUNT 179 K/uL (130-400); RED CELL DISTRIBUTION WIDTH CV 14.9 % (11.5-14.5); RED CELL DISTRIBUTION WIDTH SD 50.3 fL (36.4-46.3); WHITE BLOOD COUNT 10.77 K/uL (4.8-10.8)
[2017-04-21] MEDS: LEVOTHYROXINE 75 MCG TAB PO SCH (05:27)
[2017-04-21 05:45] LABS: ALBUMIN 3.1 gm/dl (3.4-5.0); CREATININE 2.67 mg/dl (0.60-1.40); POTASSIUM 3.7 mmol/L (3.5-5.1)
--- NOTE | 2017-04-21 06:43 | Surgery Progress Note ---
Surgery Progress Note Date of Service Apr 21, 2017. Subjective Patient is awake and alert. He is tolerating his diet well and has minimal pain. His drain output is essentially minimal serous. Objective Vital Signs: Date Time Temp Pulse Resp B/P (MAP) Pulse Ox O2 Delivery O2 Flow Rate FiO2 04/21/17 03:20 36.3 61 16 157/71 (99) 97 Room Air 04/20/17 23:20 Room Air 04/20/17 23:01 36.6 70 16 136/74 (94) 93 Room Air 04/20/17 22:00 74 150/79 (102) 04/20/17 20:45 78 172/88 (116) 04/20/17 19:51 36.4 62 17 163/84 (110) 94 Room Air 04/20/17 16:04 96 Nasal Cannula 3.0 04/20/17 15:01 36.3 75 18 152/77 (102) 97 Nasal Cannula 3.0 04/20/17 13:15 36.3 61 16 164/70 (101) 96 3.0 04/20/17 12:10 78 16 146/77 (100) 96 3.0 04/20/17 11:15 70 16 139/70 (93) 96 3.0 04/20/17 10:45 36.3 53 16 129/69 (89) 97 3.0 04/20/17 10:20 36.3 59 16 168/81 (110) 96 Nasal Cannula 3.0 04/20/17 10:20 96 Nasal Cannula 3.0 04/20/17 10:20 Nasal Cannula 3.0 04/20/17 10:00 60 18 145/74 96 Nasal Cannula 3 04/20/17 09:50 63 18 138/69 94 Nasal Cannula 3 04/20/17 09:40 36.0 64 14 145/72 96 Nasal Cannula 3 04/20/17 09:30 64 18 153/74 96 Oxymask 3 04/20/17 09:20 66 25 145/79 97 Oxymask 6 04/20/17 09:10 72 23 155/83 96 Oxymask 10 04/20/17 09:00 75 28 155/83 97 Oxymask 12 04/20/17 08:50 84 25 162/98 96 Oxymask 15 04/20/17 08:46 88 20 94 BiPAP/CPAP 60 04/20/17 08:40 121 25 193/118 95 BiPAP 60 04/20/17 08:30 103 22 173/108 95 BiPAP 60 04/20/17 08:20 79 16 152/81 96 BiPAP 60 04/20/17 08:18 84 95 60 04/20/17 08:10 93 28 178/93 87 Mask 15 04/20/17 08:04 36.2 76 20 203/99 89 Ambu-Bag 15 General Appearance: no apparent distress Respiratory/Chest: no respiratory distress Abdomen: soft Incision(s): dry, intact Laboratory Results: Results Past 24 Hours Test 04/20/17 08:16 04/20/17 09:01 04/20/17 12:07 04/20/17 16:54 Range/Units Bedside Glucose 137 152 161 70-99 mg/dl Sodium Level 141 136-145 mmol/L Potassium Level 3.5 3.5-5.1 mmol/L Chloride Level 108 98-107 mmol/L Carbon Dioxide Level 27 21-32 mmol/L Anion Gap 7.0 3-11 mmol/L Blood Urea Nitrogen 42 7-18 mg/dl Creatinine 2.66 0.60-1.40 mg/dl Est Creatinine Clear Calc Drug Dose 25.6 ml/min Estimated GFR () 26.0 Estimated GFR (Non- 22.5 BUN/Creatinine Ratio 15.8 10-20 Random Glucose 171 70-99 mg/dl Calcium Level 8.1 8.5-10.1 mg/dl Test 04/20/17 20:44 04/21/17 04:59 Range/Units Bedside Glucose 121 70-99 mg/dl White Blood Count 10.77 4.8-10.8 K/uL Red Blood Count 4.09 4.7-6.1 M/uL Hemoglobin 12.9 14.0-18.0 g/dL Hematocrit 37.3 42-52 % Mean Corpuscular Volume 91.2 80-100 fL Mean Corpuscular Hemoglobin 31.5 25-34 pg Mean Corpuscular Hemoglobin Concent 34.6 32-36 g/dl RDW Standard Deviation 50.3 36.4-46.3 fL RDW Coefficient of Variation 14.9 11.5-14.5 % Platelet Count 179 130-400 K/uL Mean Platelet Volume 9.0 7.4-10.4 fL Sodium Level 139 136-145 mmol/L Potassium Level 3.7 3.5-5.1 mmol/L Chloride Level 105 98-107 mmol/L Carbon Dioxide Level 28 21-32 mmol/L Anion Gap 6.0 3-11 mmol/L Blood Urea Nitrogen 36 7-18 mg/dl Creatinine 2.67 0.60-1.40 mg/dl Est Creatinine Clear Calc Drug Dose 25.5 ml/min Estimated GFR () 25.9 Estimated GFR (Non- 22.4 BUN/Creatinine Ratio 13.4 10-20 Random Glucose 128 70-99 mg/dl Calcium Level 8.0 8.5-10.1 mg/dl Total Bilirubin 1.1 0.2-1 mg/dl Direct Bilirubin 0.2 0-0.2 mg/dl Aspartate Amino Transf (AST/SGOT) 37 15-37 U/L Alanine Aminotransferase (ALT/SGPT) 41 12-78 U/L Alkaline Phosphatase 38 45-117 U/L Total Protein 6.0 6.4-8.2 gm/dl Albumin 3.1 3.4-5.0 gm/dl Globulin 2.9 2.5-4.0 gm/dl Albumin/Globulin Ratio 1.1 0.9-2 Assessment & Plan 04/21/2017-patient is status post a laparoscopic cholecystectomy with drain placement. The patient had relatively significant respiratory difficulties postoperatively. I think it would be safest to monitor the patient today and plan for discharge tomorrow. We will have him ambulate in the hallway and continue the current medications.
[2017-04-21] MEDS ORDERED: GLUCAGON FOR INJ 1 MG VIAL SQ PRN (07:00)
[2017-04-21] MEDS ORDERED: GLUCOSE 40% GEL 15 GM TUBE PO PRN (07:00)
[2017-04-21] MEDS ORDERED: GLUCOSE 10 TABS/TUBE PO PRN (07:00)
[2017-04-21] MEDS ORDERED: DEXTROSE 50% 50 ML SYR IV PRN (07:00)
[2017-04-21 07:03] VITALS: BP 144/70; PULSE 51; TEMP 36.6; O2SAT 94
--- NOTE | 2017-04-21 07:41 | Discharge Instructions ---
Discharge Instructions Date of Service Apr 21, 2017. Admission Reason for Admission: Cholelithiasis, Gallstone Pancreatitis, Diabetes Discharge Discharge Diagnosis / Problem: chronic cholecystitis Discharge Goals Goal(s): Decrease discomfort, Improve function, Improve disease control Activity Recommendations Activity Limitations: as noted below Lifting Limitations: no more than 25 pounds Exercise/Sports Limitations: until after follow-up appointment May Resume Sexual Activity: when tolerated Shower/Bathe: tomorrow Driving or Machine Use: one week . Instructions / Follow-Up Instructions / Follow-Up SPECIAL CARE INSTRUCTIONS: * Cover incisions and change daily for comfort/drainage. *Empty bulb drains twice daily and record Cover open drain sites and change twice daily *Avoid constipation-may use Senokot S and milk of magnesia twice daily As directed on the package * May use ibuprofen for pain as tolerated. * Expect some swelling and bruising. Call your doctor if: * Temperature above 101 degrees * Pain not relieved by pain medicine ordered * There is increased drainage or redness from any incision * You have any unanswered questions or concerns [phone]. FOLLOW UP VISIT: If not already scheduled, please call the office for a follow-up visit. OFFICE PHONE NUMBER: Dr. Schwab Office Current Hospital Diet Patient's current hospital diet: Renal Diet, Diabetes Type 2 Diet Discharge Diet Recommended Diet: Regular Diet Procedures Procedures Performed: Laparoscopic Cholecystectomy Pending Studies Studies pending at discharge: no Laboratory Results Hemoglobin A1c Test 04/02/17 12:44 Range/Units Estimated Average Glucose 143 mg/dl Hemoglobin A1c 6.6 H 4.5-5.6 % Medical Emergencies . Who to Call and When: Medical Emergencies: If at any time you feel your situation is an emergency, please call 911 immediately. . Non-Emergent Contact Non-Emergency issues call your: Primary Care Provider, Surgeon . "Provider Documentation" section prepared by Amilcar Schwab. . VTE Core Measure Inpt VTE Proph given/why not?: Enoxaparin (Lovenox)SQ, SCD's
[2017-04-21] MEDS ORDERED: HYDR-5688 PO (07:44)
[2017-04-21] MEDS: INSULIN ASPART 100 UNITS/ML 3 ML PEN SC SCH ×4 (08:00→20:48)
--- NOTE | 2017-04-21 08:00 | Anesthesiology Progress Note ---
Anesthesia Post Op Note Date & Time Apr 21, 2017 at 07:58 Vital Signs Pain Intensity: 5.0 Vital Signs Past 12 Hours Date Time Temp Pulse Resp B/P (MAP) Pulse Ox O2 Delivery O2 Flow Rate FiO2 04/21/17 07:03 36.6 51 16 144/70 (94) 94 Room Air 04/21/17 03:20 36.3 61 16 157/71 (99) 97 Room Air 04/20/17 23:20 Room Air 04/20/17 23:01 36.6 70 16 136/74 (94) 93 Room Air 04/20/17 22:00 74 150/79 (102) 04/20/17 20:45 78 172/88 (116) Notes Mental Status: alert / awake / arousable, participated in evaluation Pt Amnestic to Procedure: Yes Nausea / Vomiting: adequately controlled Pain: adequately controlled Airway Patency, RR, SpO2: stable & adequate BP & HR: stable & adequate Hydration State: stable & adequate Anesthetic Complications: no major complications apparent patient reports having trouble breathing postoperatively yesterday. Patient breathing well this morning. Denies any trouble or difficulties. Sitting up in bed on phone.
[2017-04-21] MEDS: RANITIDINE HCL 150 MG TAB PO SCH ×2 (09:06→19:25)
[2017-04-21] MEDS: ENOXAPARIN 30 MG/0.3 ML SYR SQ SCH (09:13)
[2017-04-21 12:10] VITALS: BP 154/74; PULSE 51; TEMP 36.7; O2SAT 93
[2017-04-21 15:03] VITALS: BP 136/64; PULSE 56; TEMP 36.7; O2SAT 94
--- NOTE | 2017-04-21 15:26 | Hospitalist Progress Note ---
Hospitalist Progress Note Date of Service Apr 21, 2017. (Zainab Cash PA-C) Subjective Pt evaluation today including: conversation w/ patient, physical exam, chart review, lab review, review of studies Pain: None PO Intake: Good Voiding: no voiding problems The patient was seen and examined this morning. Pt reports doing well today, he denies any abdominal pain, nausea or vomiting. He is tolerating an oral diet without any difficulty. He denies any bowel movement or passing flatus at this point. Patient has been ambulating about the sanders without any trouble. He is anticipating discharge to home tomorrow. Additional Comments: Constitutional: No fever, sweats or chills Eyes: No diplopia, no worsening or blurred vision ENT: normal hearing, no trouble swallowing Respiratory: No cough, sputum, dyspnea at rest or on exertion Cardiovascular: No chest pain, tightness or palpitations Abdomen: No pain, nausea, vomiting, diarrhea or constipation -last bowel movement was 2 days ago Musculoskeletal: No joint pain, calf pain, swelling Neurologic: No weakness, numbness/tingling, or balance problems Psychiatric: No anxiety or depression Skin: No rash or itch (Zainab Cash PA-C) Objective Vital Signs Date Time Temp Pulse Resp B/P (MAP) Pulse Ox O2 Delivery O2 Flow Rate FiO2 04/21/17 15:03 36.7 56 18 136/64 (88) 94 Room Air 04/21/17 12:10 36.7 51 16 154/74 (100) 93 Room Air 04/21/17 07:30 Room Air 04/21/17 07:03 36.6 51 16 144/70 (94) 94 Room Air 04/21/17 03:20 36.3 61 16 157/71 (99) 97 Room Air 04/20/17 23:20 Room Air 04/20/17 23:01 36.6 70 16 136/74 (94) 93 Room Air 04/20/17 22:00 74 150/79 (102) 04/20/17 20:45 78 172/88 (116) 04/20/17 19:51 36.4 62 17 163/84 (110) 94 Room Air 04/20/17 16:04 96 Nasal Cannula 3.0 (Zainab Cash PA-C) Physical Exam Notes: General: awake, alert, no apparent distress, obese Head: Normocephalic, atraumatic ENT: PERRL, EOMI, no pharyngeal exudate, mucous membranes moist Chest: Clear to auscultation, on room air, no adventitious breath sounds Cardiac: Regular rate and rhythm, no murmur, no JVD, normal peripheral pulses, good capillary refill Abdominal: + MAGDA in RUQ draining pink serosanguineous fluid, incision sites covered with bandages, C/D/I, NABS x 4 quadrants, soft, nontender to palpation, no rebound, guarding or tenderness Extremities: Normal inspection, no peripheral edema or erythema, calfs nontender to palpation Psych: Normal mood and affect Neuro: AAO x 3, speech is clear, no peripheral sensory deficits (Zainab Cash PA-C) Laboratory Results Last 24 Hours Test 04/20/17 16:54 04/20/17 20:44 04/21/17 04:59 04/21/17 07:03 Bedside Glucose 161 mg/dl 121 mg/dl White Blood Count 10.77 K/uL Red Blood Count 4.09 M/uL Hemoglobin 12.9 g/dL Hematocrit 37.3 % Mean Corpuscular Volume 91.2 fL Mean Corpuscular Hemoglobin 31.5 pg Mean Corpuscular Hemoglobin Concent 34.6 g/dl RDW Standard Deviation 50.3 fL RDW Coefficient of Variation 14.9 % Platelet Count 179 K/uL Mean Platelet Volume 9.0 fL Sodium Level 139 mmol/L Potassium Level 3.7 mmol/L Chloride Level 105 mmol/L Carbon Dioxide Level 28 mmol/L Anion Gap 6.0 mmol/L Blood Urea Nitrogen 36 mg/dl Creatinine 2.67 mg/dl Est Creatinine Clear Calc Drug Dose 25.5 ml/min Estimated GFR () 25.9 Estimated GFR (Non- 22.4 BUN/Creatinine Ratio 13.4 Random Glucose 128 mg/dl Calcium Level 8.0 mg/dl Total Bilirubin 1.1 mg/dl Direct Bilirubin 0.2 mg/dl Aspartate Amino Transf (AST/SGOT) 37 U/L Alanine Aminotransferase (ALT/SGPT) 41 U/L Alkaline Phosphatase 38 U/L Total Protein 6.0 gm/dl Albumin 3.1 gm/dl Globulin 2.9 gm/dl Albumin/Globulin Ratio 1.1 Prothrombin Time 10.4 SECONDS Prothromb Time International Ratio 1.0 Test 04/21/17 12:10 Bedside Glucose 109 mg/dl (Zainab Cash PA-C) Assessment and Plan Patient is a 76 y/o male, with PMHx of HTN, HLD, hypothyroidism, T2DM, CKD stage IV, BPH, and GERD s/p lap elsa by Dr. Schwab on 04/20. s/p lap elsa by Dr. Schwab on 04/20: - Surgical management, pain management, and DVT prophylaxis as per primary team - Follow postop CBC and PRP stable - Follow LFTs HTN, HLD: - Resume Losartan 100 mg QAM tomorrow, continue to hold Lasix tonight and can resume tomorrow. 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 Acosta: Follow PRP Hypothyroidism: Continue Synthroid GERD: Zantac 300 mg BID DVT prophylaxis: As per surgical team Dispo: As per primary team - likely tomorrow (Zainab Cash PA-C) Reviewed: Pt Seen/Exam by Me (Jaylyn Platt DO) History Pt is doing well s/p lap elsa. Tolerating PO. No chest pain or SOB. Agree with HPI/ROS as noted by PA (Jaylyn Platt, DO) General Appearance: WD/WN, no apparent distress Eye Exam: bilateral eye normal inspection, bilateral eye other (nml sclera) Respiratory: normal breath sounds, no respiratory distress Cardiovascular: normal peripheral pulses, regular rate, rhythm Gastrointestinal: non tender, soft Extremities: non-tender, no pedal edema Neurologic/Psychiatric: alert, normal mood/affect, oriented x 3 Skin Characteristics: normal color, warm/dry (Jaylyn Platt DO) Assessment/Plan Agree with plan as outlined above s/p lap elsa DM, HTN, stable Monitor cr (Jaylyn Platt DO)
[2017-04-21] MEDS: ATORVASTATIN 20 MG TAB PO SCH (19:22)
[2017-04-21] MEDS: METOPROLOL SUCC 50MG EXT REL TAB PO SCH (19:23)
[2017-04-21 19:30] VITALS: BP 155/75; PULSE 71
[2017-04-21 22:54] VITALS: BP 148/71; PULSE 67; TEMP 36.9; O2SAT 94
--- NOTE | 2017-04-22 05:55 | Discharge Summary ---
Discharge Summary Date of Service Apr 22, 2017. Discharge Summary Admission Date: Apr 21, 2017 at 06:39 Discharge Date: Apr 22, 2017 Discharge Disposition: Home with services Primary Diagnosis: Chronic cholecystitis Secondary Diagnoses/Problems: Medical Problems: (1) [id number] kidney injury Status: Acute (2) Viral pharyngitis Status: Acute Procedures: Patient underwent laparoscopic cholecystectomy with drain placement Consultations: Medical team Discharge Instructions Last Recorded Wt (Kilograms): 89.600 Allergies: Coded Allergies: Penicillins (Unverified Allergy, Severe, HIVES, 04/20/17) Cimetidine (Verified Allergy, Unknown, SHORTNESS OF BREATH, 04/20/17) Clarithromycin (Verified Allergy, Unknown, UNKNOWN, 04/20/17) Omeprazole (Verified Allergy, Unknown, SHORTNESS OF BREATH, 04/20/17) Special Care: Call your doctor if: * Temperature above 101 degrees * Pain not relieved by pain medicine ordered * There is increased drainage or redness from any incision * You have any unanswered questions or concerns. Avoid all tobacco products. If you need help to stop smoking, call [employer] FREE QUITLINE at . This is a free call. Admission Information Admission HPI: Patient has a history of abdominal pain consistent with biliary colic. He has been brought in the hospital for elective cholecystectomy. Hospital Course Patient was brought in the hospital on 04/20/2017. He was taken to the operating room where he underwent laparoscopic cholecystectomy. He has a history of severe renal insufficiency. His gallbladder was somewhat intrahepatic and slightly difficult to dissect. I placed a drain in the subhepatic space. He has done quite well since his surgery. He is felt stable for discharge home to be followed in the surgical clinic within 1 week. Total time spent on discharge = This includes examination of the patient, discharge planning, medication reconciliation, and communication with other providers.
[2017-04-22] MEDS: LEVOTHYROXINE 75 MCG TAB PO SCH (06:00)
--- NOTE | 2017-04-22 07:55 | Clinical Documentation Query ---
ANA Juan : CLINICAL DOCUMENTATION QUERY Patient is a 76 year old male who on 04/20 underwent laparoscopic cholecystectomy. Postoperative anesthesia note included the following: "he showed some signs of residual neuromuscular blockade and SpO2 in the high 70s. His spontaneous breathing was supported by bag mask ventilation until BiPAP therapy could arrive and an additional dose of neostigmine was given to reverse NMB. The patient tolerated BiPAP well and continued to improve in strength and cough. " Surgical progress note included "The patient had relatively significant respiratory difficulties postoperatively". This was documented as an indication for an additional day of monitoring as an inpatient. As appropriate, consider documentation as suggested below in order to capture the severity of illness and risk of mortality associated with this important clinical diagnosis. In your clinical opinion is this patient being managed for: ( ) Acute pulmonary insufficiency following laparoscopic cholecystectomy ( ) Not Agree ( ) Other explanation of clinical findings (Please Explain) ( ) Unable to determine (Please Define) ( ) Need to Discuss The medical record reflects the following clinical findings, treatment, and risk factors. Clinical Indicators: As above Treatment: Neostigmine, BVM ventilation, Bi-PAP, supplemental O2 Risk Factors: General anesthesia, age Please clarify and document your clinical opinion in the progress notes and discharge summary. Terms such as "probable", "suspected", "likely", "questionable", "possible", or "still to be ruled out" are acceptable. IF IN AGREEMENT, YOU MUST DOCUMENT ABOVE DIAGNOSTIC STATEMENT IN DAILY PROGRESS NOTES AND DISCHARGE SUMMARY. This document is not part of the patient's record. Thank You, Rocky Rivero, RN [phone]
[2017-04-22] MEDS: INSULIN ASPART 100 UNITS/ML 3 ML PEN SC SCH (08:00)
[2017-04-22 08:13] VITALS: BP 132/70; PULSE 62; TEMP 36.5; O2SAT 93
[2017-04-22 08:40] VITALS: O2SAT 93
[2017-04-22] MEDS: RANITIDINE HCL 150 MG TAB PO SCH (08:59)
[2017-04-22] MEDS: ENOXAPARIN 30 MG/0.3 ML SYR SQ SCH (09:00)
[2017-04-22] MEDS ORDERED: LOSARTAN POTASSIUM 50 MG TAB PO SCH (09:00)
[2017-04-22 09:14] VITALS: BP 132/70; PULSE 62; TEMP 36.5; O2SAT 93
--- NOTE | 2017-04-22 09:30 | Hospitalist Progress Note ---
Hospitalist Progress Note Date of Service Apr 22, 2017. (Zainab Cash PA-C) Subjective Pt evaluation today including: conversation w/ patient, conversation w/ family , physical exam, chart review, lab review, review of studies Pain: Minimal abdominal soreness PO Intake: Good Voiding: no voiding problems The patient was seen and examined this morning. Pt reports doing well this morning. He notes having minimal soreness around where the MAGDA drain is still in place. Dr. Schwab is planning to have the drain removed on Thursday per pt report. He denies any fever, chills or sweats. Pt is tolerating an oral diet without difficulty. No BM but is now passing flatus. Additional Comments: Constitutional: No fever, sweats or chills Eyes: No diplopia, no worsening or blurred vision ENT: normal hearing, no trouble swallowing Respiratory: No cough, sputum, dyspnea at rest or on exertion Cardiovascular: No chest pain, tightness or palpitations Abdomen: No pain, nausea, vomiting, diarrhea or constipation -last bowel movement was 2 days ago Musculoskeletal: No joint pain, calf pain, swelling Neurologic: No weakness, numbness/tingling, or balance problems Psychiatric: No anxiety or depression Skin: No rash or itch (Zainab Cash PA-C) Objective Vital Signs Date Time Temp Pulse Resp B/P (MAP) Pulse Ox O2 Delivery O2 Flow Rate FiO2 04/22/17 09:14 36.5 62 15 93 Room Air 04/22/17 08:40 93 Room Air 04/22/17 08:13 36.5 62 15 132/70 (90) 93 Room Air 04/22/17 07:10 Room Air 04/21/17 23:15 Room Air 04/21/17 22:54 36.9 67 18 148/71 (96) 94 Room Air 04/21/17 19:30 71 155/75 (101) 04/21/17 15:45 Room Air 04/21/17 15:03 36.7 56 18 136/64 (88) 94 Room Air 04/21/17 12:10 36.7 51 16 154/74 (100) 93 Room Air (Zainab Cash PA-C) Physical Exam Notes: General: awake, alert, no apparent distress, obese Head: Normocephalic, atraumatic ENT: PERRL, EOMI, no pharyngeal exudate, mucous membranes moist Chest: Clear to auscultation, on room air, no adventitious breath sounds Cardiac: Regular rate and rhythm, no murmur, no JVD, normal peripheral pulses, good capillary refill Abdominal: + MAGDA in RUQ draining pink serosanguineous fluid, incision sites covered with bandages, C/D/I, NABS x 4 quadrants, soft, nontender to palpation, no rebound, guarding or tenderness Extremities: Normal inspection, no peripheral edema or erythema, calfs nontender to palpation Psych: Normal mood and affect Neuro: AAO x 3, speech is clear, no peripheral sensory deficits (Zainab Cash PA-C) Laboratory Results Last 24 Hours Test 04/21/17 12:10 04/21/17 17:02 04/21/17 20:27 04/22/17 08:18 Bedside Glucose 109 mg/dl 101 mg/dl 128 mg/dl 114 mg/dl (Zainab Cash PA-C) Assessment and Plan Patient is a 76 y/o male, with PMHx of HTN, HLD, hypothyroidism, T2DM, CKD stage IV, BPH, and GERD s/p lap elsa by Dr. Schwab on 04/20. s/p lap elsa by Dr. Schwab on 04/20: - Surgical management, pain management, and DVT prophylaxis as per primary team - Follow postop CBC and PRP stable - Follow LFTs HTN, HLD: - Resume Losartan 100 mg QAM tomorrow, continue to hold Lasix tonight and can resume upon discharge. 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 Acosta: Follow PRP Hypothyroidism: Continue Synthroid GERD: Zantac 300 mg BID DVT prophylaxis: As per surgical team Dispo: As per primary team - discharge today (Zainab Cash PA-C) History Pt was discharged prior to my exam, however I did review the chart and case with pt and agree with the above assessment. (Jaylyn Platt, DO) Assessment/Plan Agree with plan as outlined above s/p lap elsa DM, HTN, stable Monitor cr (Jaylyn Platt, DO)
== END 2017-04-22 09:39 | disposition home or self-care (01) | DRG 418 ==
LOC: C.ACU 04:49 → ENRESERV 09:36 → C.MSN 10:33 → OBSVTOIN 04-21 06:39
PROVIDERS: ADMIT Surgery; ATTEND Surgery
PROC: 0FT44ZZ Resection of Gallbladder, Percutaneous Endoscopic Approach (ICD-10-PCS; principal; 2017-04-20 07:00)
DX: K81.1 Chronic cholecystitis (principal); N18.4 Chronic kidney disease, stage 4 (severe); N25.81 Secondary hyperparathyroidism of renal origin; N17.9 Acute kidney failure, unspecified; I12.9 Hypertensive chronic kidney disease with stage 1 through stage 4 chronic kidney disease, or unspecified chronic kidney disease; N40.0 Benign prostatic hyperplasia without lower urinary tract symptoms; K21.9 Gastro-esophageal reflux disease without esophagitis; E03.9 Hypothyroidism, unspecified; E11.9 Type 2 diabetes mellitus without complications; J02.8 Acute pharyngitis due to other specified organisms; Z87.891 Personal history of nicotine dependence; Z88.0 Allergy status to penicillin; Z88.1 Allergy status to other antibiotic agents

== ENCOUNTER → 2017-07-06 | Outpatient (CLI) | payer OTHER ==
[~2017-07-06] MED LIST changes: +HYDR-5688 PO
[2017-07-06 12:39] LABS: HEMATOCRIT 38.8 % (42-52); HEMOGLOBIN 13.2 g/dL (14.0-18.0); MEAN CELL VOLUME 91.5 fL (80-100); MEAN CORPUSCULAR HEMOGLOBIN 31.1 pg (25-34); MEAN PLATELET VOLUME 9.1 fL (7.4-10.4); PLATELET COUNT 261 K/uL (130-400); RED CELL DISTRIBUTION WIDTH CV 15.3 % (11.5-14.5); RED CELL DISTRIBUTION WIDTH SD 51.1 fL (36.4-46.3); WHITE BLOOD COUNT 7.11 K/uL (4.8-10.8)
[2017-07-06 12:59] LABS: ALBUMIN 3.2 gm/dl (3.4-5.0); BLOOD UREA NITROGEN 37 mg/dl (7-18); CALCIUM 8.5 mg/dl (8.5-10.1); CARBON DIOXIDE 28 mmol/L (21-32); CREATININE 2.74 mg/dl (0.60-1.40); GLUCOSE 142 mg/dl (70-99); SODIUM 139 mmol/L (136-145); TOTAL PROTEIN 6.7 gm/dl (6.4-8.2)
[2017-07-06 13:00] LABS: ALKALINE PHOSPHATASE 45 U/L (45-117); ALT/SGPT 16 U/L (12-78); AST/SGOT 16 U/L (15-37)
[2017-07-06 13:42] LABS: HEMOGLOBIN A1C 6.4 % (4.5-5.6)
== END | disposition home or self-care (01) ==
LOC: C.LAB 10:52
PROVIDERS: ATTEND Internal Medicine Nephrology
DX: I10 Essential (primary) hypertension (principal); R80.9 Proteinuria, unspecified; N25.81 Secondary hyperparathyroidism of renal origin; E55.9 Vitamin D deficiency, unspecified; N18.4 Chronic kidney disease, stage 4 (severe); K80.20 Calculus of gallbladder without cholecystitis without obstruction

== ENCOUNTER 2020-05-22 05:51 | Inpatient (IN) ==
[2020-05-22] MEDS ORDERED: fentaNYL citrate 100 MCG/2 ML VIAL IV STA (06:40)
[2020-05-22] MEDS ORDERED: ONDANSETRON INJ 2 MG/ML 2 ML VIAL IV STA (06:40)
--- NOTE | 2020-05-22 06:44 | Emergency Department Note ---
Impression & Plan Acute exacerbation of CHF (congestive heart failure), Acute left flank pain, Hypoxia ED Provider Note Provider: Jayjay Etienne MD DATE OF SERVICE: 05/22/2020 CHIEF COMPLAINT: Left flank left lower quadrant pain, shortness of breath HISTORY OF PRESENT ILLNESS: Patient is a 79-year-old gentleman significant history of diastolic heart failure, hypothyroidism, CKD, bronchitis presenting here today complaining of 2 days of sudden onset of left flank left lower quadrant pain. Denies trauma or syncope. States the pain waxes and wanes to some degree and some mild associated nausea is present. Denies vomiting or diarrhea and states been using actually significant bowel regimen to help promo te stools. Denies any issues urinating. States he does feel that he may have gained a little weight and little bit more swollen and feels a bit more short of breath. Denies fever but states slightly more prominent cough. States he has received a dose of coronavirus vaccine. Denies significant chest pain. Denies any right-sided abdominal pain. Patient denies recent significant increase in salt intake over the . Patient states he has been taking his home diuretics. Patient denies using home pain medicines. Patient denies a history of kidney stones. From the last heart failure clinic notes they record his dry weight is approximately 203 to 205 pounds. REVIEW OF SYSTEMS: A total of 10 review of systems was obtained and negative except as stated above in the HPI. PAST MEDICAL HISTORY: As noted above MEDICATIONS: Reviewed medication list SOCIAL HISTORY: Former smoker, PHYSICAL EXAM: GENERAL: alert and oriented in no acute distress on stretcher Head: normocephalic and atraumatic EYES: No injection, discharge or icterus. NECK: Trachea midline. Supple. ENT: Mucous membranes pink and moist. LUNGS: Airway patent. No retractions. Breath sounds diminished in the bases with some scattered fine crackles. HEART: Regular rate and rhythm. No chest wall tenderness ABDOMEN: Soft without guarding with some mild left lower quadrant tenderness. No overlying rash. BACK: Some slight left flank tenderness without overlying skin changes or bruises. SKIN: Acyanotic, warm, dry, without rashes EXTREMITIES: Without swelling, tenderness or deformity NEUROLOGICAL: No focal deficits. No aphasia. No facial droop or slurred speech EK bpm sinus rhythm with first-degree AV block. No PVC or PAC. No acute ST segment elevation or depression. QTC 450. CONTINUOUS CARDIAC MONITORING: was ordered and showed a heart rate of 60s-70s bpm in normal sinus rhythm PDMP was checked without noted issue. Patient's laboratory studies and imaging reviewed. Differential includes Infection, dehydration, gastrointestinal, renal colic, kidney stone, diverticulitis, metabolic abnormality, hypo/hyperglycemia, electrolyte disturbance, anemia, hypoxia, cardiac sources, intracerebral event, neurologic, as well as other pathologies. IMPRESSION/MEDICAL DECISION MAKING: Patient presents with 2 complaints. Ports of the past 2 days left lower quadrant left flank pain. No history of trauma or radiation of the legs. Seems atypical for sciatic lower back related/spinal cord related pain. Question possible diverticulitis or other intra-abdominal process nodules a CT of the abdomen pelvis without contrast given his renal function was completed. Patient does endorse a bit of nausea with the pain which he has not taken anything for at home. Given some Zofran and a small amount of fentanyl here to help with his pain. Patient secondarily reports some shortness of breath and some concern for increased swelling and possibly weight gain. Patient states his scale at home is not accurate. States he has been taking his home diuretics. Has a significant history of CKD not currently on dialysis. Chest x-ray and imaging concerning for some CHF exacerbation although not acutely oxygen at this point. EKG without significant ischemic changes and troponin here is negative. Blood work also not indicative of acute hepatitis or pancreatitis. Denies significant fever and there is no leukocytosis and I doubt acute pneumonia. Patient did receive 2 doses of Covid vaccine previously. Likely his shortness of breath and breathing are from some fluid overload. CT of the abdomen pelvis shows multiple bilateral indeterminate renal masses largest of which was in the left kidney 3.2 cm. No evidence of bowel obstruction, free air, appendicitis, acute diverticu litis per the radiology report. The base of the lungs bilateral pleural effusions and airspace opacities are also noted. Some nodules appreciated this area as well. Patient made aware. Patient states the hop grower has been following the cyst on his kidneys. Unsure the exact cause of his flank discomfort but urinalysis pending at this time. Patient is hypoxic on room air and not on oxygen at home per his report. Given a dose of IV Bumex to assist with diuresis. Discussed the patient and given his hypoxia and severe CKD discussed further observation and monitoring his diuresis here. He was in agreement and the hospitalist was contacted. DIAGNOSIS: CHF exacerbation, left flank pain, hypoxia DISPOSITION: Hospitalist will evaluate Patient was agreeable with this plan. Past Med/Surg History Medical History (Updated 05/22/20 @ 15:00 by Jayjay Etienne M.D.) BPH (benign prostatic hyperplasia) Chronic kidney disease, stage 4 (severe) FOLLOWS W/ DR. BAIN Degenerative disc disease Diabetes IDDM GERD (gastroesophageal reflux disease) recently stopped famotidine bc adverse reaction History of Helicobacter pylori infection History of stomach ulcers Hyperlipidemia Hypertension Hypothyroidism Low back pain Sleep apnea refuses cpap Thyroid disorder Vitamin D deficiency Surgical History History of cataract surgery History of cholecystectomy History of colonoscopy History of left inguinal hernia repair History of tonsillectomy and adenoidectomy History of tooth extraction History of transurethral resection of prostate Slow to wake up after anesthesia Family History Other No family history of adverse response to anesthesia Social History Smoking Status: Former smoker Second Hand Exposure: No; Do You Dip or Chew Tobacco: No; Tobacco Cessation Education Requested by Patient: No Hx Alcohol Use: No Hx Substance Use: No Preferred Language: [place] Communication Ability: Effective Visual Impairment: No Limitations Hearing Ability: Normal Client Engagement Specialist Required: No Beliefs That Will Affect Care: None marital status: Current Living Situation: Spouse current occupational status: retired Other Information That Helps Us Care for You: No Feels Safe at Home: Yes Safety Concerns: Feels Safe At This Time Assistive Devices: None Allergies Allergies Allergy/AdvReac Type Severity Reaction Status Date / Time Penicillins Allergy Severe HIVES Verified 05/22/20 07:33 cimetidine Allergy Unknown SHORTNESS Verified 05/22/20 07:33 OF BREATH clarithromycin Allergy Unknown UNKNOWN Verified 05/22/20 07:33 omeprazole Allergy Unknown SHORTNESS Verified 05/22/20 07:33 OF BREATH amoxicillin Allergy Hives Verified 05/22/20 07:33 famotidine Allergy itching Verified 05/22/20 07:33 BLLE Home Meds Home Medications Medication Instructions Recorded Confirmed atorvastatin 20 mg PO HS 03/01/18 05/22/20 testosterone cypionate 140 mg IM Q15D 03/01/18 05/22/20 metoprolol succinate 100 mg 100 mg PO QPM tab 10/05/18 05/22/20 tablet,extended release 24 hr Xultophy 100/3.6 15 unit SUBCUT QAM 04/04/19 05/22/20 cholecalciferol (vitamin D3) 25 1,000 unit PO QAM cap 10/27/19 05/22/20 mcg (1,000 unit) capsule fluticasone propionate 2 spray INTRANASAL BID 01/15/20 05/22/20 levothyroxine 100 mcg PO QAM 01/15/20 05/22/20 polyethylene glycol 3350 [Miralax] 17 g PO QAM 01/15/20 05/22/20 sennosides-docusate sodium 1 tab-cap PO QAM 01/15/20 05/22/20 [Senokot-S] tamsulosin 0.4 mg capsule 0.4 mg PO DAILY 01/24/20 05/22/20 torsemide 20 mg tablet 20 mg PO TID tab 04/10/20 05/22/20 amlodipine 10 mg PO DAILY 05/22/20 05/22/20 metoprolol succinate 150 mg PO QAM 05/22/20 05/22/20 pantoprazole 40 mg PO DAILY 05/22/20 05/22/20 Results & Data (ED) Vital Signs Vital Signs - 24 hr 05/22/20 05:55 05/22/20 06:05 05/22/20 06:12 Temperature 36.7 C Temperature Source Skin Oral Pulse Rate 74 75 Pulse Rate from SpO2 Sensor 75 Respiratory Rate 20 20 37 H Respiratory Effort / Characteristics Non-Labored Spontaneous Non-Labored Respiratory Depth Normal Normal Respiratory Pattern Regular Regular Blood Pressure 153/72 H Blood Pressure Mean 99 Blood Pressure Position Sitting Blood Pressure Position [Right Arm] Sitting Pulse Oximetry 93 94 93 Oxygen Delivery Method Room Air Room Air Oxygen Flow Rate Sepsis Recent Fever Within 48 Hours No Sepsis New/Unexplained Change in Mental Status N/A Sepsis Action Taken by Nursing No Action Required 05/22/20 06:13 05/22/20 06:20 05/22/20 06:30 Temperature Temperature Source Pulse Rate 75 74 73 Pulse Rate from SpO2 Sensor 74 74 73 Respiratory Rate 24 22 22 Respiratory Effort / Characteristics Respiratory Depth Respiratory Pattern Blood Pressure 157/74 H 150/70 H Blood Pressure Mean 101 96 Blood Pressure Position Blood Pressure Position [Right Arm] Pulse Oximetry 93 94 93 Oxygen Delivery Method Oxygen Flow Rate Sepsis Recent Fever Within 48 Hours Sepsis New/Unexplained Change in Mental Status Sepsis Action Taken by Nursing 05/22/20 06:45 05/22/20 07:00 05/22/20 07:30 Temperature Temperature Source Pulse Rate 72 62 Pulse Rate from SpO2 Sensor 72 63 Respiratory Rate 28 H 20 Respiratory Effort / Characteristics Respiratory Depth Respiratory Pattern Blood Pressure 139/101 H 125/60 Blood Pressure Mean 113 81 Blood Pressure Position Blood Pressure Position [Right Arm] Pulse Oximetry 93 92 97 Oxygen Delivery Method Room Air Oxygen Flow Rate Sepsis Recent Fever Within 48 Hours Sepsis New/Unexplained Change in Mental Status Sepsis Action Taken by Nursing 05/22/20 08:00 05/22/20 08:30 05/22/20 09:00 Temperature Temperature Source Pulse Rate 64 65 62 Pulse Rate from SpO2 Sensor 64 65 62 Respiratory Rate 18 19 14 Respiratory Effort / Characteristics Respiratory Depth Respiratory Pattern Blood Pressure 129/65 110/63 132/59 L Blood Pressure Mean 86 78 83 Blood Pressure Position Blood Pressure Position [Right Arm] Pulse Oximetry 96 94 96 Oxygen Delivery Method Oxygen Flow Rate Sepsis Recent Fever Within 48 Hours Sepsis New/Unexplained Change in Mental Status Sepsis Action Taken by Nursing 05/22/20 09:01 05/22/20 09:15 05/22/20 09:30 Temperature Temperature Source Pulse Rate 66 63 Pulse Rate from SpO2 Sensor 65 63 Respiratory Rate 18 16 Respiratory Effort / Characteristics Respiratory Depth Respiratory Pattern Blood Pressure 125/56 L Blood Pressure Mean 79 Blood Pressure Position Blood Pressure Position [Right Arm] Pulse Oximetry 94 86 L 94 Oxygen Delivery Method Nasal Cannula Room Air Oxygen Flow Rate 2 Sepsis Recent Fever Within 48 Hours Sepsis New/Unexplained Change in Mental Status Sepsis Action Taken by Nursing 05/22/20 10:00 05/22/20 10:30 Temperature Temperature Source Pulse Rate 60 59 L Pulse Rate from SpO2 Sensor 60 59 L Respiratory Rate 19 14 Respiratory Effort / Characteristics Respiratory Depth Respiratory Pattern Blood Pressure 123/58 L 121/59 L Blood Pressure Mean 79 79 Blood Pressure Position Blood Pressure Position [Right Arm] Pulse Oximetry 93 91 Oxygen Delivery Method Oxygen Flow Rate Sepsis Recent Fever Within 48 Hours Sepsis New/Unexplained Change in Mental Status Sepsis Action Taken by Nursing Laboratory Data Result diagrams: 05/22/20 06:10 05/22/20 06:10 Lab Results 05/22/20 05/22/20 05/22/20 Range/Units 06:10 06:10 06:10 WBC 9.19 (4.8-10.8) K/uL RBC 3.83 L (4.7-6.1) M/uL Hgb 11.5 L (14.0-18.0) g/dL Hct 34.1 L (42-52) % MCV 89.0 (80-100) fL MCH 30.0 (25-34) pg MCHC 33.7 (32-36) g/dL RDW Std Deviation 51.2 H (36.4-46.3) fL RDW Coeff of Nisha 15.8 H (11.5-14.5) % Plt Count 306 (130-400) K/uL MPV 8.8 (7.4-10.4) fL Immature Gran % (Auto) 0.9 % Neut % (Auto) 65.3 % Lymph % (Auto) 16.9 % [place] % (Auto) 12.3 % Eos % (Auto) 4.4 % Baso % (Auto) 0.2 % Neut # (Auto) 6.01 (1.4-6.5) K/uL Lymph # (Auto) 1.55 (1.2-3.4) K/uL [place] # (Auto) 1.13 H (0.11-0.59) K/uL Eos # (Auto) 0.40 (0-0.5) K/uL Baso # (Auto) 0.02 (0-0.2) K/uL Immature Gran # (Auto) 0.08 H (0.00-0.02) K/uL PT 10.0 (9.0-12.0) Seconds INR 1.0 (0.9-1.1) Sodium 138 (136-145) mmol/L Potassium 4.2 (3.5-5.1) mmol/L Chloride 104 (98-107) mmol/L Carbon Dioxide 29 (21-32) mmol/L Anion Gap 5.0 (3-11) BUN 48 H (7-18) mg/dl Creatinine 4.06 H (0.6-1.4) mg/dl Est Cr Clr Drug Dosing 16.4 ml/min Est GFR ( Amer) 15.3 Est GFR (Non-Af Amer) 13.2 BUN/Creatinine Ratio 11.8 (10-20) Glucose 89 (70-99) mg/dl Calcium 8.3 L (8.5-10.1) mg/dl Total Bilirubin 0.7 (0.2-1) mg/dl AST 11 L (15-37) U/L ALT 11 L (12-78) U/L Alkaline Phosphatase 66 (45-117) U/L Troponin I < 0.015 (0-0.045) ng/ml NT-Pro-B Natriuret Pep (0-1800) pg/ml Total Protein 6.9 (6.4-8.2) gm/dl Albumin 2.9 L (3.4-5.0) gm/dl Globulin 4.0 (2.5-4.0) gm/dl Albumin/Globulin Ratio 0.7 L (0.9-2) Lipase 148 (73-393) U/L TSH (0.300-4.500) uIu/ml Urine Color Urine Appearance (Clear) Urine pH (4.5-7.5) Ur Specific [place] (1.000-1.030) Urine Protein (Negative) Urine Glucose (UA) (Negative) Urine Ketones (Negative) Urine Blood (Negative) Urine Nitrite (Negative) Urine Bilirubin (Negative) Urine Urobilinogen (Negative) Ur Leukocyte Esterase (Negative) Urine WBC (Auto) (0-5) /hpf Urine RBC (Auto) (0-4) /hpf U Hyaline Cast (Auto) (0-5) /lpf U Epithel Cells (Auto) (0-5) /lpf Urine Bacteria (Auto) (Negative) COVID-19 Eval Order SARS-CoV-2 (PCR) (Negative) Influenza Type A (PCR) (Neg) Influenza Type B (PCR) (Neg) RSV (RT-PCR) (Neg) 05/22/20 05/22/20 05/22/20 Range/Units 06:10 09:20 09:37 WBC (4.8-10.8) K/uL RBC (4.7-6.1) M/uL Hgb (14.0-18.0) g/dL Hct (42-52) % MCV (80-100) fL MCH (25-34) pg MCHC (32-36) g/dL RDW Std Deviation (36.4-46.3) fL RDW Coeff of Nisha (11.5-14.5) % Plt Count (130-400) K/uL MPV (7.4-10.4) fL Immature Gran % (Auto) % Neut % (Auto) % Lymph % (Auto) % [place] % (Auto) % Eos % (Auto) % Baso % (Auto) % Neut # (Auto) (1.4-6.5) K/uL Lymph # (Auto) (1.2-3.4) K/uL [place] # (Auto) (0.11-0.59) K/uL Eos # (Auto) (0-0.5) K/uL Baso # (Auto) (0-0.2) K/uL Immature Gran # (Auto) (0.00-0.02) K/uL PT (9.0-12.0) Seconds INR (0.9-1.1) Sodium (136-145) mmol/L Potassium (3.5-5.1) mmol/L Chloride (98-107) mmol/L Carbon Dioxide (21-32) mmol/L Anion Gap (3-11) BUN (7-18) mg/dl Creatinine (0.6-1.4) mg/dl Est Cr Clr Drug Dosing ml/min Est GFR ( Amer) Est GFR (Non-Af Amer) BUN/Creatinine Ratio (10-20) Glucose (70-99) mg/dl Calcium (8.5-10.1) mg/dl Total Bilirubin (0.2-1) mg/dl AST (15-37) U/L ALT (12-78) U/L Alkaline Phosphatase (45-117) U/L Troponin I (0-0.045) ng/ml NT-Pro-B Natriuret Pep 6863 H (0-1800) pg/ml Total Protein (6.4-8.2) gm/dl Albumin (3.4-5.0) gm/dl Globulin (2.5-4.0) gm/dl Albumin/Globulin Ratio (0.9-2) Lipase (73-393) U/L TSH 2.790 (0.300-4.500) uIu/ml Urine Color Yellow Urine Appearance Clear (Clear) Urine pH 6.0 (4.5-7.5) Ur Specific [place] 1.015 (1.000-1.030) Urine Protein 3+ H (Negative) Urine Glucose (UA) Negative (Negative) Urine Ketones Negative (Negative) Urine Blood Negative (Negative) Urine Nitrite Negative (Negative) Urine Bilirubin Negative (Negative) Urine Urobilinogen Negative (Negative) Ur Leukocyte Esterase Negative (Negative) Urine WBC (Auto) 1-5 (0-5) /hpf Urine RBC (Auto) 0-4 (0-4) /hpf U Hyaline Cast (Auto) 1-5 (0-5) /lpf U Epithel Cells (Auto) 5-10 H (0-5) /lpf Urine Bacteria (Auto) Negative (Negative) COVID-19 Eval Order [facility]FluRsv at [facility] SARS-CoV-2 (PCR) (Negative) Influenza Type A (PCR) (Neg) Influenza Type B (PCR) (Neg) RSV (RT-PCR) (Neg) 05/22/20 Range/Units 09:37 WBC (4.8-10.8) K/uL RBC (4.7-6.1) M/uL Hgb (14.0-18.0) g/dL Hct (42-52) % MCV (80-100) fL MCH (25-34) pg MCHC (32-36) g/dL RDW Std Deviation (36.4-46.3) fL RDW Coeff of Nisha (11.5-14.5) % Plt Count (130-400) K/uL MPV (7.4-10.4) fL Immature Gran % (Auto) % Neut % (Auto) % Lymph % (Auto) % [place] % (Auto) % Eos % (Auto) % Baso % (Auto) % Neut # (Auto) (1.4-6.5) K/uL Lymph # (Auto) (1.2-3.4) K/uL [place] # (Auto) (0.11-0.59) K/uL Eos # (Auto) (0-0.5) K/uL Baso # (Auto) (0-0.2) K/uL Immature Gran # (Auto) (0.00-0.02) K/uL PT (9.0-12.0) Seconds INR (0.9-1.1) Sodium (136-145) mmol/L Potassium (3.5-5.1) mmol/L Chloride (98-107) mmol/L Carbon Dioxide (21-32) mmol/L Anion Gap (3-11) BUN (7-18) mg/dl Creatinine (0.6-1.4) mg/dl Est Cr Clr Drug Dosing ml/min Est GFR ( Amer) Est GFR (Non-Af Amer) BUN/Creatinine Ratio (10-20) Glucose (70-99) mg/dl Calcium (8.5-10.1) mg/dl Total Bilirubin (0.2-1) mg/dl AST (15-37) U/L ALT (12-78) U/L Alkaline Phosphatase (45-117) U/L Troponin I (0-0.045) ng/ml NT-Pro-B Natriuret Pep (0-1800) pg/ml Total Protein (6.4-8.2) gm/dl Albumin (3.4-5.0) gm/dl Globulin (2.5-4.0) gm/dl Albumin/Globulin Ratio (0.9-2) Lipase (73-393) U/L TSH (0.300-4.500) uIu/ml Urine Color Urine Appearance (Clear) Urine pH (4.5-7.5) Ur Specific [place] (1.000-1.030) Urine Protein (Negative) Urine Glucose (UA) (Negative) Urine Ketones (Negative) Urine Blood (Negative) Urine Nitrite (Negative) Urine Bilirubin (Negative) Urine Urobilinogen (Negative) Ur Leukocyte Esterase (Negative) Urine WBC (Auto) (0-5) /hpf Urine RBC (Auto) (0-4) /hpf U Hyaline Cast (Auto) (0-5) /lpf U Epithel Cells (Auto) (0-5) /lpf Urine Bacteria (Auto) (Negative) COVID-19 Eval Order SARS-CoV-2 (PCR) NEGATIVE (Negative) Influenza Type A (PCR) Negative (Neg) Influenza Type B (PCR) Negative (Neg) RSV (RT-PCR) Negative (Neg) Administered Medications Albuterol (Albuterol Hfa 8 Gm Inhaler) 2 puffs INH Q6R [facility]ARNA Stop: 05/23/20 07:01 Last Admin: 05/22/20 13:05 Dose: 2 puffs Documented by: [id number] Amlodipine Besylate (Amlodipine Besylate 5 Mg Tab) 10 mg PO DAILY [facility] Stop: 06/21/20 11:33 Last Admin: 05/22/20 13:26 Dose: 10 mg Documented by: [id number] Fluticasone Propionate (Fluticasone Propionate Na Spr 16 Gm Btl) 2 sprays NA BID APARNA Stop: 06/21/20 11:33 Last Admin: 05/22/20 13:25 Dose: 2 sprays Documented by: [id number] Heparin Sodium (Porcine) (Heparin Sod 5,000 Unit/0.5 Ml Vial) 5,000 units SQ Q8 [facility]NA Stop: 06/21/20 13:59 Last Admin: 05/22/20 13:27 Dose: 5,000 units Documented by: [id number] Lidocaine (Lidocaine 5% 1 Patch) 1 patch TD QAM [facility] Stop: 06/21/20 11:14 Last Admin: 05/22/20 13:24 Dose: 1 patch Documented by: [id number] Pantoprazole Sodium (Pantoprazole 40 Mg Tab) 40 mg PO DAILY [facility] Stop: 06/21/20 11:33 Last Admin: 05/22/20 13:25 Dose: 40 mg Documented by: [id number] Tamsulosin HCl (Tamsulosin Hcl 0.4 Mg Cap) 0.4 mg PO DAILY [facility] Stop: 06/21/20 11:33 Last Admin: 05/22/20 13:26 Dose: 0.4 mg Documented by: [id number] Torsemide (Torsemide 20 Mg Tab) 20 mg PO TID [facility] Stop: 06/21/20 13:59 Last Admin: 05/22/20 13:26 Dose: 20 mg Documented by: [id number] Vitamin D (Cholecalciferol 1,000 Units 25 Mcg Tab) 1,000 units PO QAM [facility] Stop: 06/21/20 11:33 Last Admin: 05/22/20 13:25 Dose: 1,000 units Documented by: [id number] Discontinued Medications Fentanyl Citrate (Fentanyl Citrate 100 Mcg/2 Ml Vial) 50 mcg IV NOW STA Stop: 05/22/20 06:41 Last Admin: 05/22/20 06:59 Dose: 50 mcg Documented by: [id number] Bumetanide 1 mg/ Syringe 4 mls @ 4 mls/min IV NOW [facility] Stop: 06/21/20 09:29 Last Admin: 05/22/20 09:51 Dose: 4 mls/min Documented by: [id number] Ondansetron HCl (Ondansetron Inj 2 Mg/Ml 2 Ml Vial) 4 mg IV NOW STA Stop: 05/22/20 06:41 Last Admin: 05/22/20 07:00 Dose: 4 mg Documented by: [id number] Imaging Data Radiologist's Impression: Abdomen/Pelvis CT 05/22/20 06:40 CT SCAN OF THE ABDOMEN AND PELVIS WITHOUT CONTRAST CLINICAL HISTORY: Left flank and left lower quadrant pain. Shortness of breath. COMPARISON STUDY: X-ray study dated 05/22/2020 TECHNIQUE: CT scan of the abdomen and pelvis was performed from the lung bases to the proximal femurs. Images are reviewed in the axial, sagittal, and coronal planes. IV contrast was not administered for this examination. A dose lowering technique was utilized adhering to the principles of ALARA. CT DOSE: 774.38 mGy.cm FINDINGS: Lower chest: The heart is enlarged. There is a small pericardial effusion. There are bilateral pleural effusions. There are bibasilar parenchymal airspace opacities. These have a somewhat nodular appearance. While likely infectious/inflammatory, multifocal neoplasm cannot be excluded. Follow-up will be necessary. Liver: The unenhanced liver is normal in size, contour, and attenuation. There is no intrahepatic biliary ductal dilatation. Gallbladder: Surgically absent Spleen: Normal in size and attenuation. Pancreas: Unremarkable. Adrenal glands: Unremarkable. Kidneys: There are multiple bilateral indeterminate renal masses the largest of which arises from the upper pole of the left kidney measuring 3.2 cm. Dedicated renal imaging is recommended in follow-up. Bowel: There are no transition zones indicate bowel obstruction. There is no evidence of acute diverticulitis. The appendix appears normal. Peritoneum: There is a small periumbilical hernia. There is a loop of bowel abutting the hernia but there is no current evidence of obstruction. Vasculature: The abdominal aorta is normal in course and caliber. Adenopathy: There is a nonspecific 15 mm nodule within the mesentery at the level of the left kidney. An enlarged lymph node cannot be excluded Pelvic viscera: There is mild prostatomegaly. There is minimal bladder wall thickening. Skeletal structures: There is a nonspecific 5 mm lytic focus involving the left inferior pubic ramus IMPRESSION: 1. Multiple bilateral indeterminate renal masses. Dedicated renal imaging is recommended in follow-up. 2. No evidence of bowel obstruction. No evidence of free air. Normal appendix. No evidence of acute diverticulitis. 3. Cardiomegaly, small pericardial effusion, and bilateral pleural effusions 4. Bilateral nodular pulmonary airspace opacities. While likely infecti ous/inflammatory, multifocal neoplasm cannot be excluded. Follow-up imaging will be necessary. ACT 112: Negative or not required by law. Electronically signed by: Dominic Gee M.D. 05/22/2020 8:01 AM Chest X-Ray 05/22/20 06:41 XR chest 1V portable CLINICAL HISTORY: Shortness of breath. Left flank pain COMPARISON STUDY: 01/19/2020 FINDINGS: The heart is enlarged. There is interstitial edema present. There are small bilateral pleural effusions. There is no lobar consolidation.[ IMPRESSION: Cardiomegaly and radiographic evidence of congestive failure with interstitial edema and small bilateral pleural effusions. ACT 112: Negative or not required by law. Electronically signed by: Dominic Gee M.D. 05/22/2020 7:00 AM Discharge Plan Visit Data Chief Complaint: Respiratory Problems Stated Complaint: HARD TIME CATCHING BREATH,PAIN LWR LEFT SIDE ED Provider: Jayjay Etienne Discharge Problem: Acute exacerbation of CHF (congestive heart failure), Acute left flank pain, Hypoxia Patient Disposition: Admitted As Inpatient Discharge Instructions Interventions: ED Discharge Assessment Last Done: 05/22/20 11:15 Discharge Problem: Acute exacerbation of CHF (congestive heart failure) Qualifiers: Heart failure type: diastolic Qualified Code(s): I50.33 - Acute on chronic diastolic (congestive) heart failure
[2020-05-22 06:49] LABS: Basophils # (auto) 0.02 K/uL (0-0.2); Basophils % (auto) 0.2 %; Eosinophils % (auto) 4.4 %; Hematocrit (blood only) 34.1 % (42-52); Hemoglobin 11.5 g/dL (14.0-18.0); Immature Granulocytes # (auto) 0.08 K/uL (0.00-0.02); Immature Granulocytes % (auto) 0.9 %; Lymphocytes # (auto) 1.55 K/uL (1.2-3.4); Lymphocytes % (auto) 16.9 %; Mean Corpuscular Hgb Conc 33.7 g/dL (32-36); Mean Platelet Volume 8.8 fL (7.4-10.4); Monocytes # (auto) 1.13 K/uL (0.11-0.59); Monocytes % (auto) 12.3 %; Neutrophils # (auto) 6.01 K/uL (1.4-6.5); Neutrophils % (auto) 65.3 %; Platelet Count 306 K/uL (130-400); RDW Coefficient of Variation 15.8 % (11.5-14.5); RDW Standard Deviation 51.2 fL (36.4-46.3); Red Blood Count 3.83 M/uL (4.7-6.1); White Blood Count 9.19 K/uL (4.8-10.8)
[2020-05-22 06:57] LABS: Alanine Aminotransferase 11 U/L (12-78); Albumin Level 2.9 gm/dl (3.4-5.0); Aspartate Aminotransferase 11 U/L (15-37); BUN Creatinine Ratio 11.8 (10-20); Blood Urea Nitrogen 48 mg/dl (7-18); Calcium 8.3 mg/dl (8.5-10.1); Carbon Dioxide 29 mmol/L (21-32); Chloride 104 mmol/L (98-107); Creatinine Clr Calc Pharmacy 16.4 ml/min; Est GFR (African American) 15.3; Est GFR (Non-African American) 13.2; Glucose 89 mg/dl (70-99); Lipase 148 U/L (73-393); Potassium 4.2 mmol/L (3.5-5.1); Sodium 138 mmol/L (136-145)
--- NOTE | 2020-05-22 07:01 | XRay Report ---
XR chest 1V portable CLINICAL HISTORY: Shortness of breath. Left flank pain COMPARISON STUDY: 01/19/2020 FINDINGS: The heart is enlarged. There is interstitial edema present. There are small bilateral pleur al effusions. There is no lobar consolidation.[ IMPRESSION: Cardiomegaly and radiographic evidence of congestive failure with interstitial edema and small bilateral pleural effusions. ACT 112: Negative or not required by law. Electronically signed by: Dominic Gee M.D. 05/22/2020 7:00 AM
[2020-05-22 07:02] LABS: Albumin Globulin Ratio 0.7 (0.9-2); Alkaline Phosphatase 66 U/L (45-117); Bilirubin,Total 0.7 mg/dl (0.2-1); Total Protein 6.9 gm/dl (6.4-8.2); Troponin I < 0.015 ng/ml (0-0.045)
--- NOTE | 2020-05-22 08:03 | CT Scan Report ---
CT SCAN OF THE ABDOMEN AND PELVIS WITHOUT CONTRAST CLINICAL HISTORY: Left flank and left lower quadrant pain. Shortness of breath. COMPARISON STUDY: X-ray study dated 05/22/2020 TECHNIQUE: CT scan of the abdomen and pelvis was performed from the lung bases to the proximal femurs . Images are reviewed in the axial, sagittal, and coronal planes. IV contrast was not administered fo r this examination. A dose lowering technique was utilized adhering to the principles of ALARA. CT DOSE: 774.38 mGy.cm FINDINGS: Lower chest: The heart is enlarged. There is a small pericardial effusion. There are bilateral pleura l effusions. There are bibasilar parenchymal airspace opacities. These have a somewhat nodular appear ance. While likely infectious/inflammatory, multifocal neoplasm cannot be excluded. Follow-up will be necessary. Liver: The unenhanced liver is normal in size, contour, and attenuation. There is no intrahepatic bobby iary ductal dilatation. Gallbladder: Surgically absent Spleen: Normal in size and attenuation. Pancreas: Unremarkable. Adrenal glands: Unremarkable. Kidneys: There are multiple bilateral indeterminate renal masses the largest of which arises from the upper pole of the left kidney measuring 3.2 cm. Dedicated renal imaging is recommended in follow-up. Bowel: There are no transition zones indicate bowel obstruction. There is no evidence of acute divert iculitis. The appendix appears normal. Peritoneum: There is a small periumbilical hernia. There is a loop of bowel abutting the hernia but t here is no current evidence of obstruction. Vasculature: The abdominal aorta is normal in course and caliber. Adenopathy: There is a nonspecific 15 mm nodule within the mesentery at the level of the left kidney. An enlarged lymph node cannot be excluded Pelvic viscera: There is mild prostatomegaly. There is minimal bladder wall thickening. Skeletal structures: There is a nonspecific 5 mm lytic focus involving the left inferior pubic ramus IMPRESSION: 1. Multiple bilateral indeterminate renal masses. Dedicated renal imaging is recommended in follow-up . 2. No evidence of bowel obstruction. No evidence of free air. Normal appendix. No evidence of acute d iverticulitis. 3. Cardiomegaly, small pericardial effusion, and bilateral pleural effusions 4. Bilateral nodular pulmonary airspace opacities. While likely infectious/inflammatory, multifocal n eoplasm cannot be excluded. Follow-up imaging will be necessary. ACT 112: Negative or not required by law. Electronically signed by: Dominic Gee M.D. 05/22/2020 8:01 AM
[2020-05-22] MEDS ORDERED: BUMETANIDE 1 MG in SYRINGE 0 ML IV SCH (09:30)
[2020-05-22 09:47] LABS: Appearance Urine Clear (Clear); Bacteria Urine Automated Negative (Negative); Bilirubin Urine Negative (Negative); Blood Urine Negative (Negative); Color Urine Yellow; Glucose Urine UA Negative (Negative); Ketones Urine Negative (Negative); Leukocyte Esterase Urine Negative (Negative); Nitrite Urine Negative (Negative); Protein Urine 3+ (Negative); RBC Urine Automated 0-4 /hpf (0-4); Specific Gravity Urine 1.015 (1.000-1.030); Urobilinogen Urine Negative (Negative)
[2020-05-22 10:23] LABS: Influenza A virus by PCR Negative (Neg); Influenza B virus by PCR Negative (Neg); RSV by PCR Negative (Neg); SARS CoV2 RNA(COVID-19) InHosp NEGATIVE (Negative)
--- NOTE | 2020-05-22 10:30 | History & Physical Report ---
Date of Service May 22, 2020 Assessment & Plan (1) Acute diastolic (congestive) heart failure: Acute on chronic exacerbation- likely from 2 days of pain and nausea and not taking all his medications- does not appear grossly fluid overloaded but is on wrong side of the volume curve - Last ECHO done in 2019- EF 50% dilated left atrium mild MR, RSVP >60 - Will give oral medications this morning as he has not taken them. Hold AM Toprol dose, give PM dose. - Torsemide 20 TID- continue - Received 1mg Bumex with improved symptoms but no overt diuresing. Re-evaluate later in the day and may give another - Appreciate CHF program following and assisting - Not on ARB secondary to cough - Continue amlodipine - Dry weight recorded as 213 LBS. (2) Dyspnea: Multifactorial with pulmonary HTN diagonsed on ECHO only with RSVP >60 - non compliant with recomendations for CPAP - get patient back to euvolemia and then maintain negative fluid balance - Should be able to wean off oxygen today- SPO2 in room was 95% and patient felt imrpoved - He was lying flat in the stretcher on his side, and could "finally get some sleep" - Placed back on albuterol 2 puffs q6 prn. continue fluticasone - BNP on admission for evaluation (3) Sleep apnea: As above, continue to discuss risks and benefits with patient - Not helping with his exacerbations and preventing disease progression. (4) Chronic kidney disease, stage 4 (severe): CKD IV- Has been stable, continue to control BP and volume status - Has a AVF to his left arm, good thrill - Avoid nephrotoxic agents and if needed, will minimize exposure as able (5) Diabetes: Continue home basal dosing - Will add on sliding scale if needed while in house - Goal 120-180 (6) GERD (gastroesophageal reflux disease): Continue pantoprozaole 40mg - No acute issues and left sided rib pain not consistent with ulcer - will follow (7) Pain: pain to 12th rib, no acute process seen on abdomen and pelvis, not over renals, and no spasm - Will add on lidocaine patch (8) Renal cyst: Bilateral renal cysts known with dedicated renal ultrasound and stable. (9) Hypothyroidism: Continue home synthroid- TSH T4 in the morning. History of Present Illness Chief Complaint: shortness of breath Primary Care Provider: Amilcar Love, DO Patient is a 79-YOM with past medical history of HFprEF, hypothyroidism, CKD IV, STEPHENIE (untreated), presenting here today complaining of 2 days ago experiencing left side pain, denies trauma/falls or fevers/chills. States the pain comes and goes, unable to reproduce it himself. The pain is sharp in nature and on exam is right along his left 12th rib that is located mid-axiliary and able to track around to front. The pain was associated with decrease oral intake and nausea without vomiting or diarrhea. Denies any change in urination or pain. He does feel that he may have gained a little weight and more swollen feet and ankles, and slightly more dyspneic than normal. He last weighed himself about 2 days ago and "was up about 1lb". Denies chest pain or pain with exertion. Denies any dietary indiscretion, but was not taking all his meds secondary to nausea. In the emergency room, the patient had a CXR done, CT non contrast of abdomen and pelvis, ECG, and was given 1mg Bumex IV. Upon my evaluation, the patient states "i already feel much better" although he did not diurese much from Bumex yet. Patient will be admitted for getting patient back to dry weight, telemetry monitoring, and continue workup of rib pain. I have consulted the CHF heart failure program Gayla Anthony PA-C as she follows him on the outside to assist with symptom managment. Allergies Allergy/AdvReac Type Severity Reaction Status Date / Time Penicillins Allergy Severe HIVES Verified 05/22/20 07:33 cimetidine Allergy Unknown SHORTNESS Verified 05/22/20 07:33 OF BREATH clarithromycin Allergy Unknown UNKNOWN Verified 05/22/20 07:33 omeprazole Allergy Unknown SHORTNESS Verified 05/22/20 07:33 OF BREATH amoxicillin Allergy Hives Verified 05/22/20 07:33 famotidine Allergy itching Verified 05/22/20 07:33 BLLE Home Medications Medication Instructions Recorded Confirmed Type atorvastatin 20 mg PO HS 03/01/18 05/22/20 History testosterone cypionate 140 mg IM Q15D 03/01/18 05/22/20 History metoprolol succinate 100 mg 100 mg PO QPM tab 10/05/18 05/22/20 History tablet,extended release 24 hr Xultophy 100/3.6 15 unit SUBCUT QAM 04/04/19 05/22/20 History cholecalciferol (vitamin D3) 25 1,000 unit PO QAM cap 10/27/19 05/22/20 History mcg (1,000 unit) capsule fluticasone propionate 2 spray INTRANASAL BID 01/15/20 05/22/20 History levothyroxine 100 mcg PO QAM 01/15/20 05/22/20 History polyethylene glycol 3350 [Miralax] 17 g PO QAM 01/15/20 05/22/20 History sennosides-docusate sodium 1 tab-cap PO QAM 01/15/20 05/22/20 History [Senokot-S] tamsulosin 0.4 mg capsule 0.4 mg PO DAILY 01/24/20 05/22/20 History torsemide 20 mg tablet 20 mg PO TID tab 04/10/20 05/22/20 History amlodipine 10 mg PO DAILY 05/22/20 05/22/20 History metoprolol succinate 150 mg PO QAM 05/22/20 05/22/20 History pantoprazole 40 mg PO DAILY 05/22/20 05/22/20 History Past Med/Surg History Medical History (Updated 05/22/20 @ 15:00 by Jayjay Etienne M.D.) BPH (benign prostatic hyperplasia) Chronic kidney disease, stage 4 (severe) FOLLOWS W/ DR. BAIN Degenerative disc disease Diabetes IDDM GERD (gastroesophageal reflux disease) recently stopped famotidine bc adverse reaction History of Helicobacter pylori infection History of stomach ulcers Hyperlipidemia Hypertension Hypothyroidism Low back pain Sleep apnea refuses cpap Thyroid disorder Vitamin D deficiency Surgical History History of cataract surgery History of cholecystectomy History of colonoscopy History of left inguinal hernia repair History of tonsillectomy and adenoidectomy History of tooth extraction History of transurethral resection of prostate Slow to wake up after anesthesia Family History Other No family history of adverse response to anesthesia Social History Smoking Status: Former smoker Second Hand Exposure: No; Do You Dip or Chew Tobacco: No; Tobacco Cessation Education Requested by Patient: No Hx Alcohol Use: No Hx Substance Use: No Preferred Language: Gibraltarian Communication Ability: Effective Visual Impairment: No Limitations Hearing Ability: Normal 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 Beliefs That Will Affect Care: None marital status: Current Living Situation: Spouse current occupational status: retired Other Information That Helps Us Care for You: No Feels Safe at Home: Yes Safety Concerns: Feels Safe At This Time Assistive Devices: None Review of Systems Review of Systems: REVIEW OF SYSTEMS: Constitutional: No fever, sweats or chills Eyes: No diplopia, no worsening or blurred vision ENT: normal hearing, no trouble swallowing Respiratory: (+) dyspnea with walking, No cough, sputum, dyspnea at rest or Cardiovascular: (+) edema and weight gain, No chest pain, tightness or palpitations Abdomen: (+) pain, nausea, (-) vomiting, diarrhea or constipation Musculoskeletal: No joint pain, calf pain, swelling Neurologic: No weakness, numbness/tingling, or balance problems Psychiatric: No anxiety or depression Skin: No rash or itch Physical Exam Physical Exam: PHYSICAL EXAM: General: awake, alert, no apparent distress Head: Normocephalic, atraumatic ENT: PERRL, EOMI, no pharyngeal exudate, mucous membranes moist Neuro: AAO x 3, speech clear and appropriate, strength intact bilaterally 5/5, sensation intact and equal all extremities and dermatomes, no pronator drift Chest: equal rise and fall of the chest, no accessory muscle use, no heaves or thrills, scattered crackles bilaterally auscultation, on 2LNC, pain along and under the 12th rib left side. Cardiac: Regular rate and rhythm, telemetry reviewed, skin warm dry, cap refill <3 seconds, peripheral pusles +2 no JVD, no murmur, +2 edema to knees bilaterally GI: NABS x 4 quadrants, soft, nontender to palpation, no rebound, guarding or tenderness, spleen normal and not tender : Spontaneously voiding, no pain, no CVA tenderness, Extremities: Normal inspection, no peripheral edema or erythema, calfs nontender to palpation Psych: Normal mood and affect Skin: no rash or erythema Results & Data Results & Data ([facility]) Vital Signs (Past 12 Hours) Vital Signs Temp Pulse Resp BP Pulse Ox 05/22/20 09:15 86 L 05/22/20 09:01 66 18 94 05/22/20 09:00 62 14 132/59 L 96 05/22/20 08:30 65 19 110/63 94 05/22/20 08:00 64 18 129/65 96 05/22/20 07:30 62 20 125/60 97 05/22/20 07:00 72 28 H 139/101 H 92 05/22/20 06:45 93 05/22/20 06:30 73 22 150/70 H 93 05/22/20 06:20 74 22 94 05/22/20 06:13 75 24 157/74 H 93 05/22/20 06:12 75 37 H 93 05/22/20 06:05 20 94 05/22/20 05:55 36.7 C 74 20 153/72 H 93 Laboratory Results Abnormal lab results 05/22/20 05/22/20 05/22/20 Range/Units 06:10 06:10 09:20 RBC 3.83 L (4.7-6.1) M/uL Hgb 11.5 L (14.0-18.0) g/dL Hct 34.1 L (42-52) % RDW Std Deviation 51.2 H (36.4-46.3) fL RDW Coeff of Nisha 15.8 H (11.5-14.5) % Garfield # (Auto) 1.13 H (0.11-0.59) K/uL Immature Gran # (Auto) 0.08 H (0.00-0.02) K/uL BUN 48 H (7-18) mg/dl Creatinine 4.06 H (0.6-1.4) mg/dl Calcium 8.3 L (8.5-10.1) mg/dl AST 11 L (15-37) U/L ALT 11 L (12-78) U/L Albumin 2.9 L (3.4-5.0) gm/dl Albumin/Globulin Ratio 0.7 L (0.9-2) Urine Protein 3+ H (Negative) U Epithel Cells (Auto) 5-10 H (0-5) /lpf Diagnostic Findings XR chest 1V portable CLINICAL HISTORY: Shortness of breath. Left flank pain COMPARISON STUDY: 01/19/2020 FINDINGS: The heart is enlarged. There is interstitial edema present. There are small bilateral pleural effusions. There is no lobar consolidation.[ IMPRESSION: Cardiomegaly and radiographic evidence of congestive failure with interstitial edema and small bilateral pleural effusions. CT SCAN OF THE ABDOMEN AND PELVIS WITHOUT CONTRAST CLINICAL HISTORY: Left flank and left lower quadrant pain. Shortness of breath. COMPARISON STUDY: X-ray study dated 05/22/2020 TECHNIQUE: CT scan of the abdomen and pelvis was performed from the lung bases to the proximal femurs. Images are reviewed in the axial, sagittal, and coronal planes. IV contrast was not administered for this examination. A dose lowering technique was utilized adhering to the principles of ALARA. CT DOSE: 774.38 mGy.cm FINDINGS: Lower chest: The heart is enlarged. There is a small pericardial effusion. There are bilateral pleural effusions. There are bibasilar parenchymal airspace opacities. These have a somewhat nodular appearance. While likely infectious/inflammatory, multifocal neoplasm cannot be excluded. Follow-up will be necessary. Liver: The unenhanced liver is normal in size, contour, and attenuation. There is no intrahepatic biliary ductal dilatation. Gallbladder: Surgically absent Spleen: Normal in size and attenuation. Pancreas: Unremarkable. Adrenal glands: Unremarkable. Kidneys: There are multiple bilateral indeterminate renal masses the largest of which arises from the upper pole of the left kidney measuring 3.2 cm. Dedicated renal imaging is recommended in follow-up. Bowel: There are no transition zones indicate bowel obstruction. There is no evidence of acute diverticulitis. The appendix appears normal. Peritoneum: There is a small periumbilical hernia. There is a loop of bowel abutting the hernia but there is no current evidence of obstruction. Vasculature: The abdominal aorta is normal in course and caliber. Adenopathy: There is a nonspecific 15 mm nodule within the mesentery at the level of the left kidney. An enlarged lymph node cannot be excluded Pelvic viscera: There is mild prostatomegaly. There is minimal bladder wall thickening. Skeletal structures: There is a nonspecific 5 mm lytic focus involving the left inferior pubic ramus IMPRESSION: 1. Multiple bilateral indeterminate renal masses. Dedicated renal imaging is recommended in follow-up. 2. No evidence of bowel obstruction. No evidence of free air. Normal appendix. No evidence of acute diverticulitis. 3. Cardiomegaly, small pericardial effusion, and bilateral pleural effusions 4. Bilateral nodular pulmonary airspace opacities. While likely infectious/inflammatory, multifocal neoplasm cannot be excluded. Follow-up imaging will be necessary. Medications Administered Bumetanide 1 mg/ Syringe 4 mls @ 4 mls/min IV NOW APARNA Stop: 06/21/20 09:29 Last Admin: 05/22/20 09:51 Dose: 4 mls/min Documented by: [id number] Discontinued Medications Fentanyl Citrate (Fentanyl Citrate 100 Mcg/2 Ml Vial) 50 mcg IV NOW STA Stop: 05/22/20 06:41 Last Admin: 05/22/20 06:59 Dose: 50 mcg Documented by: [id number] Ondansetron HCl (Ondansetron Inj 2 Mg/Ml 2 Ml Vial) 4 mg IV NOW STA Stop: 05/22/20 06:41 Last Admin: 05/22/20 07:00 Dose: 4 mg Documented by: [id number] Home Medications atorvastatin 20 mg PO HS 03/01/18 [History Confirmed 05/22/20] testosterone cypionate 140 mg IM Q15D 03/01/18 [History Confirmed 05/22/20] metoprolol succinate 100 mg tablet,extended release 24 hr 100 mg PO QPM tab 10/05/18 [History Confirmed 05/22/20] Xultophy 100/3.6 15 unit SUBCUT QAM 04/04/19 [History Confirmed 05/22/20] cholecalciferol (vitamin D3) 25 mcg (1,000 unit) capsule 1,000 unit PO QAM cap 10/27/19 [History Confirmed 05/22/20] fluticasone propionate 2 spray INTRANASAL BID 01/15/20 [History Confirmed 05/22/20] levothyroxine 100 mcg PO QAM 01/15/20 [History Confirmed 05/22/20] polyethylene glycol 3350 [Miralax] 17 g PO QAM 01/15/20 [History Confirmed 05/22/20] sennosides-docusate sodium [Senokot-S] 1 tab-cap PO QAM 01/15/20 [History Confirmed 05/22/20] tamsulosin 0.4 mg capsule 0.4 mg PO DAILY 01/24/20 [History Confirmed 05/22/20] torsemide 20 mg tablet 20 mg PO TID tab 04/10/20 [History Confirmed 05/22/20] amlodipine 10 mg PO DAILY 05/22/20 [History Confirmed 05/22/20] metoprolol succinate 150 mg PO QAM 05/22/20 [History Confirmed 05/22/20] pantoprazole 40 mg PO DAILY 05/22/20 [History Confirmed 05/22/20] Active Medications Bumetanide 1 mg/ Syringe 4 mls @ 4 mls/min IV NOW APARNA Stop: 06/21/20 09:29 Last Admin: 05/22/20 09:51 Dose: 4 mls/min Documented by: ECG Additional Comments: Sinus rhythm with 1st degree A-V block Otherwise normal ECG When compared with ECG of 15-JAN-2020 11:13, Premature atrial complexes are no longer Present [place] interval has increased (RBBB and left anterior fascicular block) is no longer Present Code Status & VTE Plan Code Status CODE: FULL VTE: Heparin 5000 sub q TID VTE Prophylaxis Plan VTE Prophylaxis will be ordered: Yes Supervising Physician Co-Signing Physician Notes Patient was seen and examined independently I discussed the case with Yair LEZAMA I reviewed pertinent past medical social family history and also the plan of care and agree with the plan of care. Patient was seen in the ER after diuresis he is doing better he is laying flat he still had rales in his lungs. He denies dietary medical indiscretion. Patient has a history of heart failure but his EF is preserved on last echocardiogram December 2019. We will continue diuresis with Bumex following renal function to avoid overdiuresis as he has kidney disease stage IV Any exceptions will be noted below PG Care Time/CCT Total # of Minutes Spent Total Time Spent with Patient: Total time spent is greater than 50% in coordination of care (as documented) at patient's floor/unit and/or counseling patient: Coding Level of Care Code 09695 Initial Inpt Care Lvl 3 Diagnoses Acute diastolic (congestive) heart failure I50.31 Dyspnea R06.00 Dyspnea type: dyspnea on exertion Sleep apnea G47.33 Sleep apnea type: obstructive Chronic kidney disease, stage 4 (severe) N18.4 Diabetes E10.59 Diabetes mellitus complication detail: with other circulatory complications Diabetes mellitus complication status: with circulatory complication Diabetes mellitus type: type 1 GERD (gastroesophageal reflux disease) K21.9 Esophagitis presence: without esophagitis Pain R52 Renal cyst N28.1 Hypothyroidism E03.9 (1) Sleep apnea Sleep apnea type: obstructive Qualified Code(s): G47.33 - Obstructive sleep apnea (adult) (pediatric) (2) Diabetes Diabetes mellitus complication detail: with other circulatory complications Diabetes mellitus complication status: with circulatory complication Diabetes mellitus type: type 1 Qualified Code(s): E10.59 - Type 1 diabetes mellitus with other circulatory complications (3) Dyspnea Dyspnea type: dyspnea on exertion Qualified Code(s): R06.00 - Dyspnea, unspecified (4) GERD (gastroesophageal reflux disease) Esophagitis presence: without esophagitis Qualified Code(s): K21.9 - Gastro- esophageal reflux disease without esophagitis
[2020-05-22] MEDS ORDERED: ONDANSETRON INJ 2 MG/ML 2 ML VIAL IV PRN (11:34)
[2020-05-22] MEDS ORDERED: DOCUSATE SODIUM/SENNA 50/8.6MG TAB PO PRN (11:34)
[2020-05-22] MEDS ORDERED: ACETAMINOPHEN 325 MG TAB PO PRN (11:34)
[2020-05-22] MEDS ORDERED: POLYETHYLENE (MIRALAX) 17 GM PACK PO PRN (11:34)
[2020-05-22] MEDS ORDERED: TESTOSTERONE CYPIONATE IM 200 MG/ML VIAL IM SCH (11:34)
[2020-05-22] MEDS ORDERED: NON-FORMULARY MEDICATION (Insulin Degludec-Liraglutide [Xultophy 100/3.6] 100 unit-3.6 mg SQ SCH (11:34)
[2020-05-22] MEDS ORDERED: CARBOHYDRATES FOR HYPOGLYCEMIA PO PRN (12:00)
[2020-05-22] MEDS ORDERED: GLUCOSE 10 TABS/TUBE PO PRN (12:00)
[2020-05-22] MEDS ORDERED: GLUCAGON FOR INJ 1 MG VIAL IM PRN (12:00)
[2020-05-22] MEDS ORDERED: DEXTROSE 50% 50 ML SYRINGE IV PRN (12:00)
[2020-05-22] MEDS ORDERED: GLUCOSE 40% GEL 15 GM TUBE PO PRN (12:00)
[2020-05-22] MEDS ORDERED: ALBUTEROL HFA 8 GM INHALER INH SCH (12:00)
[2020-05-22 12:19] LABS: Thyroid Stimulating Hormone 2.79 uIu/ml (0.300-4.500)
--- NOTE | 2020-05-22 12:40 | XRay Report ---
XR chest 1V portable CLINICAL HISTORY: Congestive heart failure. COMPARISON STUDY: Chest radiograph May 22, 2020 6:36 AM. FINDINGS: There is no pneumothorax. Small bilateral pleural effusions are noted. Interstitial thicken ing has slightly improved. Cardiomegaly is again noted. Bibasilar opacities are again noted. IMPRESSION: 1. Interstitial edema, slightly improved since prior exam. 2. Small bilateral pleural effusions. 3. Persistent bibasilar opacities. Continued radiographic follow up is recommended to ensure resoluti on. ACT 112: Negative or not required by law. Electronically signed by: Mariusz Acosta M.D. 05/22/2020 12:38 PM
[2020-05-22] MEDS: ALBUTEROL HFA 8 GM INHALER INH SCH ×2 (13:05→18:27)
[2020-05-22] MEDS: LIDOCAINE 5% 1 PATCH TD SCH (13:24)
[2020-05-22] MEDS: PANTOprazole 40 MG TAB PO SCH (13:25)
[2020-05-22] MEDS: CHOLECALCIFEROL 1,000 UNITS 25 MCG TAB PO SCH (13:25)
[2020-05-22] MEDS: FLUTICASONE PROPIONATE NA SPR 16 GM BTL SCH ×2 (13:25→21:01)
[2020-05-22] MEDS: amLODIPine BESYLATE 5 MG TAB PO SCH (13:26)
[2020-05-22] MEDS: TAMSULOSIN HCL 0.4 MG CAP PO SCH (13:26)
[2020-05-22] MEDS: TORSEMIDE 20 MG TAB PO SCH ×2 (13:26→21:01)
[2020-05-22] MEDS: HEPARIN SOD 5,000 UNIT/0.5 ML VIAL SQ SCH ×2 (13:27→21:04)
--- NOTE | 2020-05-22 14:23 | Electrocardiogram Report ---
Test Reason : Blood Pressure : / mmHG Vent. Rate : 076 BPM Atrial Rate : 076 BPM P-R Int : 238 ms QRS Dur : 104 ms QT Int : 400 ms P-R-T Axes : 060 -27 008 degrees QTc Int : 450 ms Sinus rhythm with 1st degree A-V block Otherwise normal ECG When compared with ECG of 15-JAN-2020 11:13, Premature atrial complexes are no longer Present [place] interval has increased (RBBB and left anterior fascicular block) is no longer Present Confirmed by Brayden Cardenas ([id number]) on 05/22/2020 2:23:11 PM Referred By: REFERRED SELF Confirmed By:Brayden Cardenas
[2020-05-22] MEDS: [UNRECOGNIZED DRUG - OTHER] SCH (16:56)
[2020-05-22] MEDS: METOPROLOL SUCC 50MG EXT REL TAB PO SCH (21:02)
[2020-05-22] MEDS: ATORVASTATIN 20 MG TAB PO SCH (21:02)
[2020-05-23] MEDS: ALBUTEROL HFA 8 GM INHALER INH SCH ×2 (00:38→07:38)
[2020-05-23] MEDS: [UNRECOGNIZED DRUG - OTHER] SCH ×4 (01:22→23:13)
[2020-05-23] MEDS: HEPARIN SOD 5,000 UNIT/0.5 ML VIAL SQ SCH ×3 (06:07→21:21)
[2020-05-23] MEDS: LEVOTHYROXINE SODIUM 100 MCG TABLET PO SCH (06:08)
[2020-05-23 06:31] LABS: Basophils # (auto) 0.02 K/uL (0-0.2); Basophils % (auto) 0.3 %; Eosinophils # (auto) 0.31 K/uL (0-0.5); Eosinophils % (auto) 3.9 %; Hematocrit (blood only) 32.4 % (42-52); Hemoglobin 10.4 g/dL (14.0-18.0); Immature Granulocytes # (auto) 0.07 K/uL (0.00-0.02); Immature Granulocytes % (auto) 0.9 %; Lymphocytes # (auto) 1.79 K/uL (1.2-3.4); Lymphocytes % (auto) 22.7 %; Mean Corpuscular Hemoglobin 29.9 pg (25-34); Mean Corpuscular Hgb Conc 32.1 g/dL (32-36); Mean Corpuscular Volume 93.1 fL (80-100); Mean Platelet Volume 8.5 fL (7.4-10.4); Monocytes % (auto) 10.1 %; Neutrophils # (auto) 4.91 K/uL (1.4-6.5); Neutrophils % (auto) 62.1 %; Platelet Count 227 K/uL (130-400); RDW Coefficient of Variation 16.1 % (11.5-14.5); RDW Standard Deviation 54.5 fL (36.4-46.3); Red Blood Count 3.48 M/uL (4.7-6.1)
[2020-05-23 07:28] LABS: BUN Creatinine Ratio 12.3 (10-20); Calcium 7.7 mg/dl (8.5-10.1); Creatinine Clr Calc Pharmacy 13.6 ml/min; Est GFR (African American) 11.8; Est GFR (Non-African American) 10.2; Magnesium 2.7 mg/dl (1.8-2.4)
[2020-05-23] MEDS: amLODIPine BESYLATE 5 MG TAB PO SCH (07:59)
[2020-05-23] MEDS: METOPROLOL SUCC 50MG EXT REL TAB PO SCH ×2 (08:00→20:25)
[2020-05-23] MEDS: TORSEMIDE 20 MG TAB PO SCH ×2 (08:00→14:48)
[2020-05-23] MEDS: TAMSULOSIN HCL 0.4 MG CAP PO SCH (08:00)
[2020-05-23] MEDS: CHOLECALCIFEROL 1,000 UNITS 25 MCG TAB PO SCH (08:00)
[2020-05-23] MEDS: FLUTICASONE PROPIONATE NA SPR 16 GM BTL SCH ×2 (08:00→20:26)
[2020-05-23] MEDS: LIDOCAINE 5% 1 PATCH TD SCH (08:00)
[2020-05-23] MEDS: PANTOprazole 40 MG TAB PO SCH (08:00)
--- NOTE | 2020-05-23 08:06 | XRay Report ---
XR chest 1V portable HISTORY: 79 years-old Male CHF acute shortness of breath. Congestive heart failure COMPARISON: Chest radiograph 05/22/2020 TECHNIQUE: Portable AP view of the chest FINDINGS: Cardiac silhouette is enlarged. Pulmonary vascular congestion with progressive right perihilar airspa ce opacities. Interstitial reticular opacities, stable to slightly progressed. No pneumothorax. Small pleural effusions. Bibasilar consolidation. Surgical clips project over the left axilla. Degenerativ e changes of the shoulders and spine. IMPRESSION: 1. Cardiomegaly with stable to slightly progressed pulmonary edema. 2. Persistent bibasilar with new right perihilar opacities. Attention at follow-up recommended. 3. Small pleural effusions. ACT 112: Negative or not required by law. The above report was generated using voice recognition software. It may contain grammatical, syntax o r spelling errors. Electronically signed by: Joaquin Blum M.D. 05/23/2020 8:05 AM
[2020-05-23] MEDS ORDERED: HEPARIN SOD (PORCINE) 1000 UNIT/ML IV ONE (09:11)
[2020-05-23] MEDS ORDERED: SODIUM CHLORIDE 0.9% 1000ML 1,000 ML IV PRN (09:11)
[2020-05-23] MEDS ORDERED: EPOETIN ALFA 10,000 UNITS/ML VIAL IV SCH (09:30)
[2020-05-23 11:17] LABS: Hepatitis B Surface Ab Quant < 3.10 mIU/mL (>or=10mIU/mL Immune); Hepatitis B Surface Antibody Non-Immune
--- NOTE | 2020-05-23 11:21 | Nephrology Consultation ---
Date of Consultation May 23, 2020 Assessment & Plan (1) Acute diastolic (congestive) heart failure: * Discussed indications/benefits/risks/alternatives to HD with patient this morning. He is agreeable to starting HD * Will schedule 1st run HD today and attempt 2L UF (2) ESRD (end stage renal disease): * Protect HD vascular access * Will provide renal vitamin * Patient resides in [place], [place]. Will consult case management to set up outpatient HD at [facility] dialysis unit following discharge from the hospital History of Present Illness Reason for Consultation: ESRD Attending Physician: Matheus Finn MD History of Present Illness Mr. Guerrero is a 79 year old white male who is seen at the request of Dr. Finn for ESRD, CHF. Medical records in the EMR were reviewed today and are summarized as follows: Mr. Guerrero had advanced CKD w/ baseline Cr 4.1. His renal impairment has been due to diabetic nephropathy and microvascular disease. He underwent L upper arm AVF creation 07/03 (transposed 02/03) by Dr. Reddy in anticipation of needing HD. Mr. Guerrero a 2 day h/o progressive dyspnea. ED evaluation revealed hypoxemia requiring O2 at 2L/min NC. CXR was c/w CHF. IV diuretic therapy provided in ED but Cr has risen to 5.0 and patient has mild uremic symptoms. Nephrology consultation has been requested to assess need for starting HD Allergies Allergy/AdvReac Type Severity Reaction Status Date / Time Penicillins Allergy Severe HIVES Verified 05/22/20 07:33 cimetidine Allergy Unknown SHORTNESS Verified 05/22/20 07:33 OF BREATH clarithromycin Allergy Unknown UNKNOWN Verified 05/22/20 07:33 omeprazole Allergy Unknown SHORTNESS Verified 05/22/20 07:33 OF BREATH amoxicillin Allergy Hives Verified 05/22/20 07:33 famotidine Allergy itching Verified 05/22/20 07:33 BLLE Home Medications Medication Instructions Recorded Confirmed Type atorvastatin 20 mg PO HS 03/01/18 05/22/20 History testosterone cypionate 140 mg IM Q15D 03/01/18 05/22/20 History metoprolol succinate 100 mg 100 mg PO QPM tab 10/05/18 05/22/20 History tablet,extended release 24 hr Xultophy 100/3.6 15 unit SUBCUT QAM 04/04/19 05/22/20 History cholecalciferol (vitamin D3) 25 1,000 unit PO QAM cap 10/27/19 05/22/20 History mcg (1,000 unit) capsule fluticasone propionate 2 spray INTRANASAL BID 01/15/20 05/22/20 History levothyroxine 100 mcg PO QAM 01/15/20 05/22/20 History polyethylene glycol 3350 [Miralax] 17 g PO QAM 01/15/20 05/22/20 History sennosides-docusate sodium 1 tab-cap PO QAM 01/15/20 05/22/20 History [Senokot-S] tamsulosin 0.4 mg capsule 0.4 mg PO DAILY 01/24/20 05/22/20 History torsemide 20 mg tablet 20 mg PO TID tab 04/10/20 05/22/20 History amlodipine 10 mg PO DAILY 05/22/20 05/22/20 History metoprolol succinate 150 mg PO QAM 05/22/20 05/22/20 History pantoprazole 40 mg PO DAILY 05/22/20 05/22/20 History Patient History Medical History (Updated 05/23/20 @ 11:17 by Smith Bain MD) BPH (benign prostatic hyperplasia) Chronic kidney disease, stage 4 (severe) FOLLOWS W/ DR. BAIN Degenerative disc disease Diabetes IDDM GERD (gastroesophageal reflux disease) recently stopped famotidine bc adverse reaction History of Helicobacter pylori infection History of stomach ulcers Hyperlipidemia Hypertension Hypothyroidism Low back pain Sleep apnea refuses cpap Thyroid disorder Vitamin D deficiency Surgical History History of cataract surgery History of cholecystectomy History of colonoscopy History of left inguinal hernia repair History of tonsillectomy and adenoidectomy History of tooth extraction History of transurethral resection of prostate Slow to wake up after anesthesia Family History Other No family history of adverse response to anesthesia Social History Smoking Status: Former smoker Second Hand Exposure: No; Do You Dip or Chew Tobacco: No; Tobacco Cessation Education Requested by Patient: No Hx Alcohol Use: No Hx Substance Use: No Preferred Language: Uzbek Communication Ability: Effective Visual Impairment: No Limitations Hearing Ability: Normal Machine Heel Sprayer Required: No Beliefs That Will Affect Care: None marital status: Current Living Situation: Spouse current occupational status: retired Other Information That Helps Us Care for You: No Feels Safe at Home: Yes Safety Concerns: Feels Safe At This Time Assistive Devices: Oxygen - Continuous Review of Systems Constitutional: + weakness; no fever Eyes: no problem reported Ear, Nose, Mouth, Throat: no problem reported Respiratory: + dyspnea Cardiovascular: + edema; no chest pain Gastrointestinal: + nausea; no abdominal pain, no vomiting and no diarrhea/loose stools Neurologic: no falls and no confusion Physical Exam Constitutional: not in distress Eyes: PERRL, conjunctivae normal, anicteric sclerae ENMT: external ear and nose normal, oropharynx normal Neck: trachea midline, no thyromegaly Respiratory: normal respiratory effort Auscultation: + rales Cardiovascular: Rate/Rhythm: regular rate and regular rhythm Extremities: + edema (1+ pretibial edema) and + AV fistula (+ bruit) Gastrointestinal (Abdomen): normal bowel sounds, soft, nontender, no hepatosplenomegaly Musculoskeletal: Extremities: no cyanosis Skin: no rashes, warm and dry Neurologic: awake; not confused Results & Data ([facility]) Vital Signs (Past 12 Hours) Vital Signs Temp Pulse Pulse Pulse Resp BP BP 05/23/20 11:02 59 L 109/47 L 05/23/20 10:40 61 111/50 L 05/23/20 10:20 68 121/55 L 05/23/20 10:07 67 129/51 L 05/23/20 10:00 36.3 C L 67 05/23/20 08:00 67 05/23/20 07:51 36.3 C L 68 20 116/56 L 05/23/20 07:38 63 20 05/23/20 04:15 36.7 C 65 18 121/70 05/23/20 00:40 65 16 05/23/20 00:08 36.7 C 67 18 124/63 05/23/20 00:00 62 Pulse Ox 05/23/20 11:02 05/23/20 10:40 05/23/20 10:20 05/23/20 10:07 05/23/20 10:00 05/23/20 08:00 05/23/20 07:51 90 05/23/20 07:38 91 05/23/20 04:15 92 05/23/20 00:40 93 05/23/20 00:08 92 05/23/20 00:00 Laboratory Tests 05/23/20 05/23/20 06:11 06:11 WBC 7.90 Hgb 10.4 L Hct 32.4 L Plt Count 227 Sodium 138 Potassium 5.0 D Chloride 105 Carbon Dioxide 29 BUN 62 H Creatinine 5.04 H* D Glucose 128 H Calcium 7.7 L Magnesium 2.7 H PG Care Time/CCT Total # of Minutes Spent Total Time Spent with Patient: Total time spent is greater than 50% in coordination of care (as documented) at patient's floor/unit and/or counseling patient: Coding Level of Care Code 38779 Inpt Consult Level 5 Diagnoses Acute diastolic (congestive) heart failure I50.31 ESRD (end stage renal disease) N18.6
[2020-05-23 11:28] LABS: Hepatitis B Surf Ag Rflx Conf Neg (Neg)
--- NOTE | 2020-05-23 11:30 | Dialysis Progress Note ---
Date of Service May 23, 2020 Assessment & Plan (1) ESRD (end stage renal disease): * AVF functioning well at Qb 200 cc/min * Breathing subjectively improved following initiation of HD/UF * Will schedule next HD treatment for am Admission and Anticipated Discharge Date Admission Date: May 22, 2020 Subjective Mr. Guerrero was seen & examined during his HD treatment this morning. He voiced no new medical concerns. Physical Exam Respiratory: Auscultation: + rales Cardiovascular: Rate/Rhythm: regular rate and regular rhythm Gastrointestinal (Abdomen): Percussion/Palpation: abdomen soft; abdomen nontender and no guarding Neurologic: awake; not confused Results & Data ([facility]) Vital Signs (Past 12 Hours) Vital Signs Temp Pulse Pulse Pulse Resp BP BP 05/23/20 11:02 59 L 109/47 L 05/23/20 10:40 61 111/50 L 05/23/20 10:20 68 121/55 L 05/23/20 10:07 67 129/51 L 05/23/20 10:00 36.3 C L 67 05/23/20 08:00 67 05/23/20 07:51 36.3 C L 68 20 116/56 L 05/23/20 07:38 63 20 05/23/20 04:15 36.7 C 65 18 121/70 05/23/20 00:40 65 16 05/23/20 00:08 36.7 C 67 18 124/63 05/23/20 00:00 62 Pulse Ox 05/23/20 11:02 05/23/20 10:40 05/23/20 10:20 05/23/20 10:07 05/23/20 10:00 05/23/20 08:00 05/23/20 07:51 90 05/23/20 07:38 91 05/23/20 04:15 92 05/23/20 00:40 93 05/23/20 00:08 92 05/23/20 00:00 [facility] Procedure Codes (Charges) Renal/Urologic Renal/Urologic: 98052 Hemodialysis, One Evaluation Coding Level of Care Code None Diagnoses ESRD (end stage renal disease) N18.6 CPT Codes Renal/Urologic - Renal/Urologic: 24802 Hemodialysis, One Evaluation ([id number])
[2020-05-23] MEDS: NEPHROCAPS PO SCH (12:49)
[2020-05-23] MEDS: INSULIN GLARGINE SOLOSTAR 100 UNITS/ML 3 ML PEN SC SCH (12:49)
--- NOTE | 2020-05-23 18:08 | Hospitalist Progress Note ---
Date of Service May 23, 2020 Assessment & Plan (1) Acute diastolic (congestive) heart failure: Acute on chronic exacerbation- likely from 2 days of pain and nausea and not taking all his medications- does not appear grossly fluid overloaded but is on wrong side of the volume curve - Last ECHO done in 2019- EF 50% dilated left atrium mild MR, RSVP >60 - Pt had poor response to attempts to diuresis, with elevated CR did have ultrafiltrartion with removal of 2 liters - - Appreciate CHF program following and assisting - - (2) Chronic kidney disease, stage 4 (severe): Pt seem by nephrology and taken to urgent ultrafiltration, this pt was well known to renal and previously had AV fistulae in place, tolerated first treatment well (3) Dyspnea: Multifactorial with pulmonary HTN diagonsed on ECHO only with RSVP >60 - non compliant with recomendations for CPAP improved with volume off loading, will see if makes urine (4) Sleep apnea: continue to encourage NIPPV (5) Diabetes: Continue home basal dosing - Will add on sliding scale if needed while in house - Goal 120-180 (6) GERD (gastroesophageal reflux disease): Continue pantoprozaole 40mg - No acute issues and left sided rib pain not consistent with ulcer - will follow (7) Pain: pain to 12th rib, no acute process seen on abdomen and pelvis, not over renals, and no spasm - Will add on lidocaine patch (8) Renal cyst: Bilateral renal cysts known with dedicated renal ultrasound and stable. (9) Hypothyroidism: Continue home synthroid- TSH T4 in the morning. Admission and Anticipated Discharge Date Admission Date: May 22, 2020 Subjective pt was seen after dialysis was feeling much better, they did remove 2 units, pt states he wants to do what needs to be done to keep living comfortably Review of Systems Review of Systems: Mild distress and fatigue no headache, blurry or double vision no speech or swallowing issues no chest pain, pressure or palpitations some mild shortness of breath, cough or wheezes no abdominal pain, nausea or vomiting, diarrhea or constipation no dysuria, hematuria or frequency significant lower extremity pain no back pain, CVA tenderness or radicular pain no bruising, bleeding or rashes no focal signs of weakness or numbness or altered sensation no complaints of anxiety or depression.. Physical Exam Physical Exam: The patient appeared well nourished and normally developed. Vital signs as documented. Head exam is normocephalic atraumatic no scleral icterus Neck is with 2 JVD, thyromegaly, or carotid bruits. Lungs are diminshed at the bases R>L Cardiac exam, Rhythm is regular.. No murmurs, rubs or gallops. Abdominal exam reveals normal bowel sounds, soft non tender, no masses Extremities are 2+ edematous and both pedal feet are warm with good capillary refill Neurologic exam is alert and oriented, no focal loss of strength or sensation Skin is without bruises or rashes Psychologically is without concerns for anxiety or depression Results & Data Results & Data ([facility]) Vital Signs (Past 12 Hours) Vital Signs Temp Pulse Pulse Pulse Resp BP BP 05/23/20 17:00 67 05/23/20 15:49 98.1 F 76 18 145/69 H 05/23/20 12:38 98.2 F 64 20 137/63 05/23/20 12:22 98.2 F 61 113/58 L 05/23/20 12:00 58 L 111/51 L 05/23/20 11:40 58 L 114/50 L 05/23/20 11:20 59 L 107/55 L 05/23/20 11:02 59 L 109/47 L 05/23/20 10:40 61 111/50 L 05/23/20 10:20 68 121/55 L 05/23/20 10:07 67 129/51 L 05/23/20 10:00 97.3 F L 67 05/23/20 08:00 67 05/23/20 07:51 97.3 F L 68 20 116/56 L 05/23/20 07:38 63 20 Pulse Ox 05/23/20 17:00 05/23/20 15:49 90 05/23/20 12:38 94 05/23/20 12:22 05/23/20 12:00 05/23/20 11:40 05/23/20 11:20 05/23/20 11:02 05/23/20 10:40 05/23/20 10:20 05/23/20 10:07 05/23/20 10:00 05/23/20 08:00 05/23/20 07:51 90 05/23/20 07:38 91 PG Care Time/CCT Total # of Minutes Spent Total Time Spent with Patient: Total time spent is greater than 50% in coordination of care (as documented) at patient's floor/unit and/or counseling patient: Coding Level of Care Code 90486 Subseq Hosp Care Lvl 3 Diagnoses Acute diastolic (congestive) heart failure I50.31 Chronic kidney disease, stage 4 (severe) N18.4 Dyspnea R06.00 Dyspnea type: dyspnea on exertion Sleep apnea G47.33 Sleep apnea type: obstructive Diabetes E10.59 Diabetes mellitus type: type 1 Diabetes mellitus complication status: with circulatory complication Diabetes mellitus complication detail: with other circulatory co mplications GERD (gastroesophageal reflux disease) K21.9 Esophagitis presence: without esophagitis Pain R52 Renal cyst N28.1 Hypothyroidism E03.9 (1) Dyspnea Dyspnea type: dyspnea on exertion Qualified Code(s): R06.00 - Dyspnea, unspecified (2) Sleep apnea Sleep apnea type: obstructive Qualified Code(s): G47.33 - Obstructive sleep apnea (adult) (pediatric) (3) Diabetes Diabetes mellitus type: type 1 Diabetes mellitus complication status: with circulatory complication Diabetes mellitus complication detail: with other circulatory complications Qualified Code(s): E10.59 - Type 1 diabetes mellitus with other circulatory complications (4) GERD (gastroesophageal reflux disease) Esophagitis presence: without esophagitis Qualified Code(s): K21.9 - Gastro- esophageal reflux disease without esophagitis
[2020-05-23] MEDS: ATORVASTATIN 20 MG TAB PO SCH (20:25)
[2020-05-23] MEDS: ALBUT/IPRATROP 3MG/0.5MG NEB 3 ML VIAL NEB PRN (23:39)
[2020-05-24] MEDS: LEVOTHYROXINE SODIUM 100 MCG TABLET PO SCH (05:46)
[2020-05-24] MEDS: HEPARIN SOD 5,000 UNIT/0.5 ML VIAL SQ SCH ×3 (05:46→20:36)
[2020-05-24] MEDS: [UNRECOGNIZED DRUG - OTHER] SCH ×3 (07:09→22:46)
[2020-05-24 07:39] LABS: Basophils # (auto) 0.02 K/uL (0-0.2); Basophils % (auto) 0.2 %; Eosinophils # (auto) 0.36 K/uL (0-0.5); Hematocrit (blood only) 30.2 % (42-52); Hemoglobin 9.9 g/dL (14.0-18.0); Immature Granulocytes % (auto) 1.1 %; Lymphocytes # (auto) 1.87 K/uL (1.2-3.4); Lymphocytes % (auto) 20.6 %; Mean Corpuscular Hemoglobin 29.9 pg (25-34); Mean Corpuscular Hgb Conc 32.8 g/dL (32-36); Mean Corpuscular Volume 91.2 fL (80-100); Mean Platelet Volume 8.8 fL (7.4-10.4); Monocytes # (auto) 1.25 K/uL (0.11-0.59); Monocytes % (auto) 13.8 %; Neutrophils # (auto) 5.46 K/uL (1.4-6.5); Neutrophils % (auto) 60.3 %; Nucleated RBC # (auto) 0.02 K/uL (0-0); Nucleated RBC % (auto) 0.2 %; Platelet Count 229 K/uL (130-400); RDW Standard Deviation 53.9 fL (36.4-46.3); Red Blood Count 3.31 M/uL (4.7-6.1); White Blood Count 9.06 K/uL (4.8-10.8)
[2020-05-24] MEDS: TORSEMIDE 10 MG TAB PO SCH (07:53)
[2020-05-24] MEDS: FLUTICASONE PROPIONATE NA SPR 16 GM BTL SCH ×2 (07:54→20:31)
[2020-05-24] MEDS: LIDOCAINE 5% 1 PATCH TD SCH (07:54)
[2020-05-24] MEDS: NEPHROCAPS PO SCH (07:54)
[2020-05-24] MEDS: PANTOprazole 40 MG TAB PO SCH (07:54)
[2020-05-24] MEDS: CHOLECALCIFEROL 1,000 UNITS 25 MCG TAB PO SCH (07:54)
[2020-05-24] MEDS: METOPROLOL SUCC 50MG EXT REL TAB PO SCH ×2 (07:54→20:36)
[2020-05-24] MEDS: INSULIN GLARGINE SOLOSTAR 100 UNITS/ML 3 ML PEN SC SCH (07:54)
[2020-05-24] MEDS: TAMSULOSIN HCL 0.4 MG CAP PO SCH (07:54)
[2020-05-24] MEDS: amLODIPine BESYLATE 5 MG TAB PO SCH (07:54)
[2020-05-24] MEDS: ALBUT/IPRATROP 3MG/0.5MG NEB 3 ML VIAL NEB PRN (08:01)
[2020-05-24 08:22] LABS: BUN Creatinine Ratio 11.6 (10-20); Calcium 7.4 mg/dl (8.5-10.1); Creatinine Clr Calc Pharmacy 14.4 ml/min; Est GFR (Non-African American) 11.2; Magnesium 2.4 mg/dl (1.8-2.4); Potassium 4.3 mmol/L (3.5-5.1)
[2020-05-24] MEDS ORDERED: SODIUM CHLORIDE 0.9% 1000ML 1,000 ML IV PRN (08:25)
--- NOTE | 2020-05-24 09:24 | Nephrology Progress Note ---
Date of Service May 24, 2020 Assessment & Plan (1) ESRD (end stage renal disease): * Patient remains dyspneic. CXR yesterday afternoon shows pulmonary vascular congestion and small bilateral pleural effusions * Will schedule 2nd HD tx for today: 3 hours, attempt 3L UF * Will order follow up CXR for am * Monitor PRP (2) Anemia: * Epogen 10,000 units IV given w/ HD 05/23/20 * Will order iron studies w/ am blood draw Admission and Anticipated Discharge Date Admission Date: May 22, 2020 Subjective Mr. Guerrero was seen & examined in his hospital room this morning. He had his first HD treatment yesterday for 2 hours w/ 2L UF. There were no complications. AVF functioned well. This morning he remains dyspneic despite O2 at 2L/min NC and has audible wheezing Review of Systems Constitutional: + weakness; no fever Eyes: no problem reported Ear, Nose, Mouth, Throat: no problem reported Respiratory: + dyspnea Cardiovascular: + edema; no chest pain Gastrointestinal: no nausea, no vomiting and no diarrhea/loose stools Neurologic: no falls and no confusion Physical Exam Constitutional: not in distress Eyes: PERRL, conjunctivae normal, anicteric sclerae ENMT: external ear and nose normal, oropharynx normal Neck: trachea midline, no thyromegaly Respiratory: normal respiratory effort Auscultation: + rales and + wheezes Cardiovascular: Rate/Rhythm: regular rate and regular rhythm Extremities: + edema (1+ pretibial edema) and + AV fistula (+ bruit) Gastrointestinal (Abdomen): normal bowel sounds, soft, nontender, no hepatosplenomegaly Percussion/Palpation: abdomen soft; abdomen nontender and no guarding Musculoskeletal: Extremities: no cyanosis Skin: no rashes, warm and dry Neurologic: awake; not confused Results & Data ([facility]) Vital Signs (Past 12 Hours) Vital Signs Temp Pulse Pulse Resp BP Pulse Ox 05/24/20 08:01 63 18 93 05/24/20 08:00 62 05/24/20 07:57 36.7 C 62 18 108/63 94 05/24/20 07:36 58 L 05/24/20 03:07 36.9 C 94 H 18 133/63 95 05/24/20 00:03 71 05/23/20 23:45 37.1 C 71 16 138/66 94 05/23/20 23:39 68 18 94 Laboratory Tests 05/24/20 05/24/20 07:18 07:18 WBC 9.06 Hgb 9.9 L Hct 30.2 L Plt Count 229 Sodium 138 Potassium 4.3 Chloride 105 Carbon Dioxide 27 BUN 54 H Creatinine 4.64 H* D Glucose 79 PG Care Time/CCT Total # of Minutes Spent Total Time Spent with Patient: Total time spent is greater than 50% in coordination of care (as documented) at patient's floor/unit and/or counseling patient: Coding Level of Care Code 95483 Subseq Hosp Care Lvl 3 Diagnoses ESRD (end stage renal disease) N18.6 Anemia D64.9
[2020-05-24] MEDS ORDERED: GLUCOSE 40% GEL 15 GM TUBE PO PRN (12:23)
[2020-05-24] MEDS ORDERED: GLUCOSE 10 TABS/TUBE PO PRN (12:23)
[2020-05-24] MEDS ORDERED: DEXTROSE 50% 50 ML SYRINGE IV PRN (12:23)
[2020-05-24] MEDS ORDERED: CARBOHYDRATES FOR HYPOGLYCEMIA PO PRN (12:23)
[2020-05-24] MEDS ORDERED: GLUCAGON FOR INJ 1 MG VIAL SQ PRN (12:23)
[2020-05-24] MEDS: INSULIN ASPART 100 UNITS/ML 3 ML PEN SC SCH ×3 (12:30→20:32)
--- NOTE | 2020-05-24 20:21 | Hospitalist Progress Note ---
Date of Service May 24, 2020 Assessment & Plan (1) Acute diastolic (congestive) heart failure: Acute on chronic exacerbation- likely from 2 days of pain and nausea and not taking all his medications- does not appear grossly fluid overloaded but is on wrong side of the volume curve - Last ECHO done in 2019- EF 50% dilated left atrium mild MR, RSVP >60 - Pt had poor response to attempts to diuresis, with elevated CR did have ultrafiltrartion x 2 sessions - - Appreciate CHF program following and assisting now weight down 11 pounds - - (2) Chronic kidney disease, stage 4 (severe): Pt seem by nephrology and taken to urgent ultrafiltration, this pt was well known to renal and previously had AV fistulae in place, tolerated dialysis sessions (3) Dyspnea: Multifactorial with pulmonary HTN diagonsed on ECHO only with RSVP >60 - non compliant with recomendations for CPAP improved with volume off loading plans on contiued dialysis (4) Sleep apnea: continue to encourage NIPPV (5) Diabetes: Continue home basal dosing - Will add on sliding scale if needed while in house - Goal 120-180 (6) GERD (gastroesophageal reflux disease): Continue pantoprozaole 40mg - No acute issues and left sided rib pain not consistent with ulcer - will follow (7) Pain: pain to 12th rib, no acute process seen on abdomen and pelvis, not over renals, and no spasm - Will add on lidocaine patch (8) Renal cyst: Bilateral renal cysts known with dedicated renal ultrasound and stable. (9) Hypothyroidism: Continue home synthroid- TSH T4 in the morning. Admission and Anticipated Discharge Date Admission Date: May 22, 2020 Subjective Patient is doing well he feels okay after 2 dialysis sessions he feels more easy to breathe and less lower extremity swelling is unclear whether of additional sessions will be decided after his labs are reviewed in the morning Review of Systems Review of Systems: Mild distress and fatigue no headache, blurry or double vision no speech or swallowing issues no chest pain, pressure or palpitations some mild shortness of breath, cough or wheezes no abdominal pain, nausea or vomiting, diarrhea or constipation no dysuria, hematuria or frequency significant lower extremity pain no back pain, CVA tenderness or radicular pain no bruising, bleeding or rashes no focal signs of weakness or numbness or altered sensation no complaints of anxiety or depression.. Physical Exam Physical Exam: The patient appeared well nourished and normally developed. Vital signs as documented. Head exam is normocephalic atraumatic no scleral icterus Neck is with 2 JVD, thyromegaly, or carotid bruits. Lungs are diminshed at the bases R>L Cardiac exam, Rhythm is regular.. No murmurs, rubs or gallops. Abdominal exam reveals normal bowel sounds, soft non tender, no masses Extremities are 2+ edematous and both pedal feet are warm with good capillary refill Neurologic exam is alert and oriented, no focal loss of strength or sensation Skin is without bruises or rashes Psychologically is without concerns for anxiety or depression Results & Data Results & Data ([facility]) Vital Signs (Past 12 Hours) Vital Signs Temp Pulse Pulse Pulse Resp BP BP 05/24/20 19:16 98.4 F 68 22 145/67 H 05/24/20 15:32 61 05/24/20 15:25 98.6 F 57 L 57 L 117/61 117/61 05/24/20 15:00 59 L 120/59 L 05/24/20 14:40 55 L 116/58 L 05/24/20 14:20 54 L 111/55 L 05/24/20 14:00 58 L 122/56 L 05/24/20 13:40 57 L 110/56 L 05/24/20 13:20 59 L 120/50 L 05/24/20 13:00 61 116/56 L 05/24/20 12:40 58 L 111/54 L 05/24/20 12:22 97.9 F 66 66 137/65 05/24/20 11:21 97.9 F 66 18 104/55 L Pulse Ox 05/24/20 19:16 94 05/24/20 15:32 05/24/20 15:25 05/24/20 15:00 05/24/20 14:40 05/24/20 14:20 05/24/20 14:00 05/24/20 13:40 05/24/20 13:20 05/24/20 13:00 05/24/20 12:40 05/24/20 12:22 05/24/20 11:21 90 PG Care Time/CCT Total # of Minutes Spent Total Time Spent with Patient: Total time spent is greater than 50% in coordination of care (as documented) at patient's floor/unit and/or counseling patient: Coding Level of Care Code 67952 Subseq Hosp Care Lvl 2 Diagnoses Acute diastolic (congestive) heart failure I50.31 Chronic kidney disease, stage 4 (severe) N18.4 Dyspnea R06.00 Dyspnea type: dyspnea on exertion Sleep apnea G47.33 Sleep apnea type: obstructive Diabetes E10.59 Diabetes mellitus type: type 1 Diabetes mellitus complication status: with circulatory complication Diabetes mellitus complication detail: with other circulatory co mplications GERD (gastroesophageal reflux disease) K21.9 Esophagitis presence: without esophagitis Pain R52 Renal cyst N28.1 Hypothyroidism E03.9 (1) Dyspnea Dyspnea type: dyspnea on exertion Qualified Code(s): R06.00 - Dyspnea, unspecified (2) Sleep apnea Sleep apnea type: obstructive Qualified Code(s): G47.33 - Obstructive sleep apnea (adult) (pediatric) (3) Diabetes Diabetes mellitus type: type 1 Diabetes mellitus complication status: with circulatory complication Diabetes mellitus complication detail: with other circulatory complications Qualified Code(s): E10.59 - Type 1 diabetes mellitus with other circulatory complications (4) GERD (gastroesophageal reflux disease) Esophagitis presence: without esophagitis Qualified Code(s): K21.9 - Gastro- esophageal reflux disease without esophagitis
[2020-05-24] MEDS: ATORVASTATIN 20 MG TAB PO SCH (20:31)
[2020-05-24] MEDS: MELATONIN 3 MG TAB PO SCH (20:35)
[2020-05-25] MEDS: HEPARIN SOD 5,000 UNIT/0.5 ML VIAL SQ SCH ×3 (06:19→22:01)
[2020-05-25] MEDS: LEVOTHYROXINE SODIUM 100 MCG TABLET PO SCH (06:19)
[2020-05-25 06:46] LABS: Basophils # (auto) 0.02 K/uL (0-0.2); Basophils % (auto) 0.3 %; Eosinophils # (auto) 0.38 K/uL (0-0.5); Eosinophils % (auto) 4.9 %; Hemoglobin 10.2 g/dL (14.0-18.0); Immature Granulocytes # (auto) 0.08 K/uL (0.00-0.02); Lymphocytes # (auto) 1.62 K/uL (1.2-3.4); Lymphocytes % (auto) 20.8 %; Mean Corpuscular Hgb Conc 32.9 g/dL (32-36); Mean Corpuscular Volume 91.2 fL (80-100); Mean Platelet Volume 8.5 fL (7.4-10.4); Monocytes % (auto) 12.9 %; Neutrophils # (auto) 4.68 K/uL (1.4-6.5); Neutrophils % (auto) 60.1 %; Platelet Count 238 K/uL (130-400); RDW Coefficient of Variation 16.1 % (11.5-14.5); RDW Standard Deviation 53.4 fL (36.4-46.3); White Blood Count 7.78 K/uL (4.8-10.8)
[2020-05-25 07:15] LABS: BUN Creatinine Ratio 9.8 (10-20); Calcium 7.9 mg/dl (8.5-10.1); Creatinine Clr Calc Pharmacy 16.8 ml/min; Est GFR (African American) 15.8; Est GFR (Non-African American) 13.6; Magnesium 2.3 mg/dl (1.8-2.4); Potassium 4.4 mmol/L (3.5-5.1)
[2020-05-25 07:20] LABS: Ferritin 147.2 ng/ml (8-388)
--- NOTE | 2020-05-25 07:45 | XRay Report ---
SINGLE VIEW CHEST CLINICAL HISTORY: Congestive heart failure. FINDINGS: An AP, portable, upright chest radiograph is compared to study dated 05/23/2020. The examinat ion is degraded by portable technique and apical lordotic positioning. The heart is enlarged noting a therosclerotic calcification of the thoracic aorta. Pulmonary vascular congestion has modestly improv ed. Multifocal airspace opacities are similar to previous. Small pleural effusions are noted. No pneu mothorax is identified. The skeletal structures are osteopenic. The bony thorax is grossly intact. IMPRESSION: 1. Cardiomegaly with evidence of congestive failure. 2. Multifocal airspace opacities are unchanged and likely represent pulmonary edema. Correlate clinic ally for evidence of a superimposed Infectious/inflammatory pneumonitis. ACT 112: Negative or not required by law. Electronically signed by: Thomas Alaniz M.D. 05/25/2020 7:44 AM
[2020-05-25 07:50] LABS: Estimated Average Glucose 151 mg/dl; Hemoglobin A1C 6.9 % (4.5-5.6)
[2020-05-25] MEDS ORDERED: TESTOSTERONE CYPIONATE IM ONE (08:00)
[2020-05-25] MEDS ORDERED: TESTOSTERONE CYPIONATE IM 200 MG/ML VIAL IM ONE (08:00)
--- NOTE | 2020-05-25 08:18 | Hospitalist Progress Note ---
Date of Service May 25, 2020 Assessment & Plan (1) Acute diastolic (congestive) heart failure: Acute on chronic exacerbation- likely from 2 days of pain and nausea and not taking all his medications- does not appear grossly fluid overloaded but is on wrong side of the volume curve - Last ECHO done in 2019- EF 50% dilated left atrium mild MR, RSVP >60 - Pt had poor response to attempts to diuresis, with elevated CR did have ultra filtrartion x 2 sessions - - Appreciate CHF program following and assisting now weight down bradycardic and typically on large doses of metoprolol succinate bid, will stop follow for rebound tachycardia (2) Chronic kidney disease, stage 4 (severe): Pt seem by nephrology and taken to urgent ultrafiltration, this pt was well known to renal and previously had AV fistulae in place, tolerated dialysis sessions remains on torsemide as pt does make some urine (3) Dyspnea: Multifactorial with pulmonary HTN diagnosed on ECHO only with RSVP >60 - non compliant with recommendations for CPAP, will continue to encourage cpap improved with volume off loading plans on continued dialysis will need to coordinate outpt scheduling (4) Sleep apnea: continue to encourage NIPPV (5) Diabetes: Continue home basal dosing - Will add on sliding scale if needed while in house - Goal 120-180 (6) GERD (gastroesophageal reflux disease): Continue pantoprozaole 40mg - No acute issues and left sided rib pain not consistent with ulcer (7) Pain: pain to 12th rib, no acute process seen on abdomen and pelvis, not over renals, and no spasm - Will add on lidocaine patch (8) Renal cyst: Bilateral renal cysts known with dedicated renal ultrasound and stable. (9) Hypothyroidism: Continue home synthroid- TSH T4 in the morning. (10) Hypogonadism: given testoserone im injection Admission and Anticipated Discharge Date Admission Date: May 22, 2020 Subjective pt remains to be dialysed again 05/25/20, supposedly cannot be enrolled in [facility] in [place] until 05/29, will need to see if nephrology wishes to dialyse 05/26 to begin the sat , tues, thurs, cycle, the pt is gaggin on the food will change to minced and moist Review of Systems Review of Systems: Mild distress and fatigue no headache, blurry or double vision no speech or swallowing issues no chest pain, pressure or palpitations some mild shortness of breath, cough or wheezes no abdominal pain, nausea or vomiting, diarrhea or constipation no dysuria, hematuria or frequency significant lower extremity pain no back pain, CVA tenderness or radicular pain no bruising, bleeding or rashes no focal signs of weakness or numbness or altered sensation no complaints of anxiety or depression.. Physical Exam Physical Exam: The patient appeared well nourished and normally developed. Vital signs as documented. Head exam is normocephalic atraumatic no scleral icterus Neck is with 2 JVD, thyromegaly, or carotid bruits. Lungs are diminshed at the bases R>L Cardiac exam, Rhythm is regular.. No murmurs, rubs or gallops. Abdominal exam reveals normal bowel sounds, soft non tender, no masses Extremities are 2+ edematous and both pedal feet are warm with good capillary refill Neurologic exam is alert and oriented, no focal loss of strength or sensation Skin is without bruises or rashes Psychologically is without concerns for anxiety or depression Results & Data Results & Data ([facility] [place]) Vital Signs (Past 12 Hours) Vital Signs Temp Pulse Pulse Resp BP Pulse Ox 05/25/20 07:59 97.9 F 48 L 18 143/64 H 90 05/25/20 07:25 59 L 05/25/20 03:02 97.9 F 54 L 22 123/60 95 05/24/20 23:18 70 05/24/20 22:58 99.0 F 63 20 139/65 95 PG Care Time/CCT Total # of Minutes Spent Total Time Spent with Patient: Total time spent is greater than 50% in coordination of care (as documented) at patient's floor/unit and/or counseling patient: Coding Level of Care Code 42412 Subseq Hosp Care Lvl 3 Diagnoses Acute diastolic (congestive) heart failure I50.31 Chronic kidney disease, stage 4 (severe) N18.4 Dyspnea R06.00 Dyspnea type: dyspnea on exertion Sleep apnea G47.33 Sleep apnea type: obstructive Diabetes E10.59 Diabetes mellitus complication detail: with other circulatory complications Diabetes mellitus complication status: with circulatory complication Diabetes mellitus type: type 1 GERD (gastroesophageal reflux disease) K21.9 Esophagitis presence: without esophagitis Pain R52 Renal cyst N28.1 Hypothyroidism E03.9 Hypogonadism (1) Sleep apnea Sleep apnea type: obstructive Qualified Code(s): G47.33 - Obstructive sleep apnea (adult) (pediatric) (2) Diabetes Diabetes mellitus complication detail: with other circulatory complications Diabetes mellitus complication status: with circulatory complication Diabetes mellitus type: type 1 Qualified Code(s): E10.59 - Type 1 diabetes mellitus with other circulatory complications (3) Dyspnea Dyspnea type: dyspnea on exertion Qualified Code(s): R06.00 - Dyspnea, unspecified (4) GERD (gastroesophageal reflux disease) Esophagitis presence: without esophagitis Qualified Code(s): K21.9 - Gastro- esophageal reflux disease without esophagitis
[2020-05-25] MEDS ORDERED: HEPARIN SOD (PORCINE) 1000 UNIT/ML IV ONE (08:30)
[2020-05-25] MEDS: METOPROLOL SUCC 50MG EXT REL TAB PO SCH (08:39)
[2020-05-25] MEDS: TORSEMIDE 10 MG TAB PO SCH (08:40)
[2020-05-25] MEDS: LIDOCAINE 5% 1 PATCH TD SCH (08:41)
[2020-05-25] MEDS: NEPHROCAPS PO SCH (08:41)
[2020-05-25] MEDS: amLODIPine BESYLATE 5 MG TAB PO SCH (08:41)
[2020-05-25] MEDS: INSULIN ASPART 100 UNITS/ML 3 ML PEN SC SCH ×4 (08:41→20:49)
[2020-05-25] MEDS: PANTOprazole 40 MG TAB PO SCH (08:41)
[2020-05-25] MEDS: FLUTICASONE PROPIONATE NA SPR 16 GM BTL SCH ×2 (08:41→20:30)
[2020-05-25] MEDS: CHOLECALCIFEROL 1,000 UNITS 25 MCG TAB PO SCH (08:41)
[2020-05-25] MEDS: TAMSULOSIN HCL 0.4 MG CAP PO SCH (08:41)
[2020-05-25] MEDS: INSULIN GLARGINE SOLOSTAR 100 UNITS/ML 3 ML PEN SC SCH (08:42)
[2020-05-25] MEDS ORDERED: SODIUM CHLORIDE 0.9% 1000ML 1,000 ML IV PRN (09:20)
--- NOTE | 2020-05-25 11:20 | Nephrology Progress Note ---
Date of Service May 25, 2020 Assessment & Plan (1) ESRD (end stage renal disease): * Dyspnea improved. CXR this am shows persistent pulmonary vascular congestion and small bilateral pleural effusions * Will schedule 3rd HD tx for today: 3 hours, attempt 3L UF * Monitor PRP * Mr. Guerrero resides in [place], [place]. Case management has been consulted to set up outpatient HD at [facility] (2) Anemia: * Epogen 10,000 units IV given w/ HD 05/23/20 * Iron saturation 18% w/ ferritin 147. Will start Venofer 200 mg iV daily x 5 days Admission and Anticipated Discharge Date Admission Date: May 22, 2020 Subjective Mr. Guerrero was seen & examined in his hospital room this morning. He was dialyzed yesterday for 3 hours w/ 3L UF. There were no complications. AVF functioned well. This morning his breathing is subjectively improved although he still requires O2 at 2L/min NC Review of Systems Constitutional: no fever Eyes: no problem reported Ear, Nose, Mouth, Throat: no problem reported Respiratory: + dyspnea on exertion Cardiovascular: + edema; no chest pain Gastrointestinal: no nausea, no vomiting and no diarrhea/loose stools Neurologic: no falls and no confusion Physical Exam Constitutional: not in distress Eyes: PERRL, conjunctivae normal, anicteric sclerae ENMT: external ear and nose normal, oropharynx normal Neck: trachea midline, no thyromegaly Respiratory: normal respiratory effort Cardiovascular: Rate/Rhythm: regular rate and regular rhythm Extremities: + edema (1+ pretibial edema) and + AV fistula (+ bruit) Gastrointestinal (Abdomen): normal bowel sounds, soft, nontender, no hepatosplenomegaly Percussion/Palpation: abdomen soft; abdomen nontender and no guarding Musculoskeletal: Extremities: no cyanosis Skin: no rashes, warm and dry Neurologic: awake; not confused Results & Data ([facility]) Vital Signs (Past 12 Hours) Vital Signs Temp Pulse Pulse Resp BP Pulse Ox 05/25/20 07:59 36.6 C 48 L 18 143/64 H 90 05/25/20 07:25 59 L 05/25/20 03:02 36.6 C 54 L 22 123/60 95 05/24/20 23:18 70 Laboratory Tests 05/25/20 05/25/20 06:22 06:22 WBC 7.78 Hgb 10.2 L Hct 31.0 L Plt Count 238 Sodium 139 Potassium 4.4 Chloride 106 Carbon Dioxide 30 BUN 39 H Creatinine 3.96 H D Glucose 75 Transferrin % Sat 18 L Ferritin 147.2 PG Care Time/CCT Total # of Minutes Spent Total Time Spent with Patient: Total time spent is greater than 50% in coordination of care (as documented) at patient's floor/unit and/or counseling patient: Coding Level of Care Code 66276 Subseq Hosp Care Lvl 3 Diagnoses ESRD (end stage renal disease) N18.6 Anemia D64.9
[2020-05-25] MEDS: IRON SUCROSE 200 MG in 0.9 % SODIUM CHLORIDE 100 ML IV SCH (12:00)
[2020-05-25] MEDS: ATORVASTATIN 20 MG TAB PO SCH (20:30)
[2020-05-25] MEDS: MELATONIN 3 MG TAB PO SCH (20:32)
[2020-05-26] MEDS: LEVOTHYROXINE SODIUM 100 MCG TABLET PO SCH (05:45)
[2020-05-26] MEDS: HEPARIN SOD 5,000 UNIT/0.5 ML VIAL SQ SCH ×2 (05:45→14:55)
[2020-05-26 06:22] LABS: Hematocrit (blood only) 31.6 % (42-52); Hemoglobin 10.1 g/dL (14.0-18.0); Mean Corpuscular Hemoglobin 29.7 pg (25-34); Mean Corpuscular Volume 92.9 fL (80-100); Mean Platelet Volume 8.9 fL (7.4-10.4); Platelet Count 236 K/uL (130-400); RDW Coefficient of Variation 16.1 % (11.5-14.5); RDW Standard Deviation 54.9 fL (36.4-46.3); White Blood Count 8.77 K/uL (4.8-10.8)
[2020-05-26 06:57] LABS: BUN Creatinine Ratio 8.9 (10-20); Calcium 8.1 mg/dl (8.5-10.1); Creatinine Clr Calc Pharmacy 14.9 ml/min; Est GFR (African American) 13.6; Est GFR (Non-African American) 11.7; Potassium 4.3 mmol/L (3.5-5.1)
[2020-05-26] MEDS: TORSEMIDE 10 MG TAB PO SCH (09:00)
[2020-05-26] MEDS: TAMSULOSIN HCL 0.4 MG CAP PO SCH (09:00)
[2020-05-26] MEDS: NEPHROCAPS PO SCH (09:01)
[2020-05-26] MEDS: FLUTICASONE PROPIONATE NA SPR 16 GM BTL SCH (09:01)
[2020-05-26] MEDS: amLODIPine BESYLATE 5 MG TAB PO SCH (09:05)
[2020-05-26] MEDS: METOPROLOL SUCC 50MG EXT REL TAB PO SCH (09:05)
[2020-05-26] MEDS: PANTOprazole 40 MG TAB PO SCH (09:05)
[2020-05-26] MEDS: LIDOCAINE 5% 1 PATCH TD SCH (09:06)
[2020-05-26] MEDS: CHOLECALCIFEROL 1,000 UNITS 25 MCG TAB PO SCH (09:07)
[2020-05-26] MEDS: [UNRECOGNIZED DRUG - OTHER] SCH ×2 (09:08→14:55)
[2020-05-26] MEDS: INSULIN ASPART 100 UNITS/ML 3 ML PEN SC SCH ×2 (09:09→12:49)
[2020-05-26] MEDS: INSULIN GLARGINE SOLOSTAR 100 UNITS/ML 3 ML PEN SC SCH (09:10)
[2020-05-26] MEDS: IRON SUCROSE 200 MG in 0.9 % SODIUM CHLORIDE 100 ML IV SCH (09:31)
--- NOTE | 2020-05-26 12:43 | Nephrology Progress Note ---
Date of Service May 26, 2020 Assessment & Plan (1) ESRD (end stage renal disease): Nam has ESRD started on hemodialysis this admission for volume overload and progressive worsening of renal function. He had 3 dialysis session back to back and had 3 L UF yesterday. Currently electrolyte, blood pressure, volume status acceptable. --no need for dialysis today, continue to monitor, advised to limit of fluid intake --okay to discharge when medically stable, next dialysis will be at outpatient dialysis unit next Thursday. --continue on torsemide on discharge --dose medications for GFR less than 10 Will follow (2) Anemia: (3) Acute diastolic (congestive) heart failure: (4) Secondary hyperparathyroidism: (5) Hypertension: (6) Hyperlipidemia: Admission and Anticipated Discharge Date Admission Date: May 22, 2020 Subjective Nam was seen and examined in his room this morning. Overall he has been feeling well, denies any shortness of breath or chest pain. Urine output low but decent, around 700 mL overnight. Electrolyte acceptable. Had 3 L UF yesterday. Electrolyte, blood pressure acceptable. Review of Systems Review of Systems: All systems reviewed & are unremarkable except as noted in Subjective Physical Exam Constitutional: well developed and well nourished; no acute distress Respiratory: normal respiratory effort; no respiratory distress Auscultation: + rales Cardiovascular: RRR, no murmur, no edema Neurologic: moves all extremities and awake; not confused Psychiatric: A+Ox3, euthymic affect Results & Data ([facility]) Vital Signs (Past 12 Hours) Vital Signs Temp Pulse Pulse Resp BP Pulse Ox 05/26/20 11:16 37.1 C 58 L 20 138/56 L 95 05/26/20 07:00 63 05/26/20 06:32 36.5 C 63 18 142/64 H 96 05/26/20 04:02 36.6 C 61 18 120/51 L 96 PG Care Time/CCT Total # of Minutes Spent Total Time Spent with Patient: Total time spent is greater than 50% in coordination of care (as documented) at patient's floor/unit and/or counseling patient: Coding Level of Care Code 62466 Subseq Hosp Care Lvl 3 Diagnoses ESRD (end stage renal disease) N18.6 Anemia D64.9 Acute diastolic (congestive) heart failure I50.31 Secondary hyperparathyroidism N25.81 Hypertension I10 Hyperlipidemia E78.5
--- NOTE | 2020-05-26 17:50 | Discharge Summary ---
Date of Service May 26, 2020 Admission HPI Per Admitting Provider Patient is a 79-YOM with past medical history of HFprEF, hypothyroidism, CKD IV, STEPHENIE (untreated), presenting here today complaining of 2 days ago experiencing left side pain, denies trauma/falls or fevers/chills. States the pain comes and goes, unable to reproduce it himself. The pain is sharp in nature and on exam is right along his left 12th rib that is located mid-axiliary and able to track around to front. The pain was associated with decrease oral intake and nausea without vomiting or diarrhea. Denies any change in urination or pain. He does feel that he may have gained a little weight and more swollen feet and ankles, and slightly more dyspneic than normal. He last weighed himself about 2 days ago and "was up about 1lb". Denies chest pain or pain with exertion. Denies any dietary indiscretion, but was not taking all his meds secondary to nausea. In the emergency room, the patient had a CXR done, CT non contrast of abdomen and pelvis, ECG, and was given 1mg Bumex IV. Upon my evaluation, the patient states "i already feel much better" although he did not diurese much from Bumex yet. Patient will be admitted for getting patient back to dry weight, telemetry monitoring, and continue workup of rib pain. I have consulted the CHF heart failure program Gayla Anthony PA-C as she follows him on the outside to assist with symptom managment. Principal Diagnosis acute kidney failure acute on chronic diastolic heart failure Discharge Exam The patient appeared stable Vital signs as documented. Lungs are clear to auscultation and appear unlabored Cardiac exam, Rhythm is regular.. No murmurs, rubs or gallops. Abdominal exam reveals normal bowel sounds, soft non tender, no masses Extremities are nonedematous and both pedal pulses are normal. Discharge Data Allergies Allergy/AdvReac Type Severity Reaction Status Date / Time Penicillins Allergy Severe HIVES Verified 05/22/20 07:33 cimetidine Allergy Unknown SHORTNESS Verified 05/22/20 07:33 OF BREATH clarithromycin Allergy Unknown UNKNOWN Verified 05/22/20 07:33 omeprazole Allergy Unknown SHORTNESS Verified 05/22/20 07:33 OF BREATH amoxicillin Allergy Hives Verified 05/22/20 07:33 famotidine Allergy itching Verified 05/22/20 07:33 BLLE Consultations 05/22/20 09:44 ED Decision to Admit Stat 05/22/20 11:34 [facility] CHF Program Referral Routine 05/23/20 08:07 Consult Nephrology Routine Ordered Studies 05/22/20 06:40 CT abd pelvis wo con Stat Hospital Course (1) Acute diastolic (congestive) heart failure: Acute on chronic exacerbation- likely from 2 days of pain and nausea and not taking all his medications- does not appear grossly fluid overloaded but is on wrong side of the volume curve - Last ECHO done in 2019- EF 50% dilated left atrium mild MR, RSVP >60 - Pt had poor response to attempts to diuresis, with elevated CR did have ultra filtrartion x 3 sessions - - Appreciate CHF program following and assisting now weight down bradycardic and typically on large doses of metoprolol succinate bid, reduced dosing too much lower dose from 250 mg in a day to 50 mg a day (2) Chronic kidney disease, stage 4 (severe): Pt seem by nephrology and taken to urgent ultrafiltration, this pt was well known to renal and previously had AV fistulae in place, tolerated dialysis sessions remains on torsemide 60 mg a day all taken at 1 dose (3) Dyspnea: Multifactorial with pulmonary HTN diagnosed on ECHO only with RSVP >60 - non compliant with recommendations for CPAP, will continue to encourage cpap improved with volume off loading plans on continued dialysis For his outpatient CPAP usage (4) Sleep apnea: continue to encourage NIPPV (5) Diabetes: Continue home diabetic regimen (6) GERD (gastroesophageal reflux disease): Continue pantoprozaole 40mg (7) Pain: pain to 12th rib, no acute process seen on abdomen and pelvis, not over renals, and no spasm Pain improved on discharge (8) Renal cyst: Bilateral renal cysts known with dedicated renal ultrasound and stable. (9) Hypothyroidism: Continue home synthroid-TSH T4 normal (10) Hypogonadism: given testoserone im injection Total Time Total Time Spent Total Time Spent (In Minutes): It required greater than 30 minutes to prepare this patient for discharge Discharge Plan Discharge Items Patient Disposition: Home - Self-Care Reason For Visit: CHF Discharge Diagnosis: acute kidney failure with h/o chronic kidney disease acute on chronic diastolic heart failure from kidney failure initiation of dialysis Activity: Resume your previous activity Non-emergency contact: Primary Care Provider and [employer] Worker Apprentice Call non-emergency contact if: your symptoms worsen Follow-up/Referrals: Amilcar Love DO [Primary Care Provider] - (PLEASE CALL YOUR PRIMARY CARE PROVIDER TO SCHEDULE A DISCHARGE FOLLOW-UP WITHIN 7-10 DAYS. ) Diet: Carb Consistent or DM2 and Dialysis Renal Addtl Attending Provider Instructions: please watch your salt and fluid intake, note the medication changes listed in the medication section Addtl Rubber Attacher Provider Instructions: You are schedule at [facility] in [place] for dialysis on Tuesdays, , and Saturdays. Your chair time is at 09:30am. Your first appointment is scheduled on ThursdayMay 29. Please arrive 30 min early at 9:00am. If you have any questions, please call [phone]. Pending Studies at Discharge: No Stand-Alone Forms: My [facility] Eat Local, Smoking Cessation Medications and DC Order Prescriptions: New metoprolol succinate 50 mg Tablet Extended Release 24 Hr 50 mg PO QAM Qty: 30 RF: 5 torsemide 20 mg tablet 60 mg PO DAILY Qty: 90 RF: 5 Continued cholecalciferol (vitamin D3) [Vitamin D3] 25 mcg (1,000 unit) capsule 1,000 unit PO QAM RF: 0 tamsulosin 0.4 mg capsule 0.4 mg PO DAILY RF: 0 atorvastatin 20 mg tablet 20 mg PO HS RF: 0 testosterone cypionate 200 mg/mL oil 140 mg IM Q15D RF: 0 levothyroxine 100 mcg tablet 100 mcg PO QAM RF: 0 fluticasone propionate 50 mcg/actuation spray,suspension 2 spray INTRANASAL BID RF: 0 polyethylene glycol 3350 [Miralax] 17 gram Powder In Packet 17 g PO QAM RF: 0 sennosides-docusate sodium [Senokot-S] 8.6-50 mg Tablet 1 tab-cap PO QAM RF: 0 Xultophy 100/3.6 100 unit-3.6 mg /mL (3 mL) Insulin Pen 15 unit SUBCUT QAM RF: 0 amlodipine 10 mg tablet 10 mg PO DAILY RF: 0 pantoprazole 40 mg tablet,delayed release (DR/EC) 40 mg PO DAILY RF: 0 Discontinued metoprolol succinate 100 mg tablet extended release 24 hr 100 mg PO QPM RF: 0 torsemide 20 mg tablet 20 mg PO TID RF: 0 metoprolol succinate 100 mg tablet extended release 24 hr 150 mg PO QAM RF: 0 Discharge Orders: Discharge Order (Routine); Ordered 05/26/20 Ordered By: Matheus Krause/Other Patient Handouts: High Blood Sugar (Hyperglycemia), Hypoglycemia (Low Blood Sugar), Managing Type 2 Diabetes, Managing Diabetes: The A1C Test Admission Data Admit Date/Time: 05/22/20 10:33 Attending Provider: Matheus Finn Admit Provider: Matheus Finn Primary Care Provider: Amilcar Love Other Providers: Matheus Finn ; Heidi Anthony ; Smith Acosta Other Interventions: Discharge Summary Assessment (RN) Last Done: 05/26/20 14:57 Coding Level of Care Code D/C Day Management >30 mins Diagnoses Acute diastolic (congestive) heart failure I50.31 Chronic kidney disease, stage 4 (severe) N18.4 Dyspnea R06.00 Dyspnea type: dyspnea on exertion Sleep apnea G47.33 Sleep apnea type: obstructive Diabetes E10.59 Diabetes mellitus type: type 1 Diabetes mellitus complication status: with circulatory complication Diabetes mellitus complication detail: with other circulatory complications GERD (gastroesophageal reflux disease) K21.9 Esophagitis presence: without esophagitis Pain R52 Renal cyst N28.1 Hypothyroidism E03.9 Hypogonadism
== END 2020-05-26 15:54 | disposition home or self-care (01) | DRG 291 ==
LOC: ED 05:51 → 2N 10:33